=== PATIENT | male | born 1950 | race Caucasian/White ===

== ENCOUNTER 2020-06-18 22:27 | Emergency (ER) | payer MEDICARE, SELFPAY ==
--- NOTE | 2020-06-18 | XR_ITS ---
EXAMINATION: RADIOGRAPHS LEFT HAND CLINICAL INFORMATION: Pain after fall COMPARISON: None TECHNIQUE: 4 views of the left hand were obtained. FINDINGS: Visualized portions of the distal radius and ulna demonstrate no fracture. Carpal rows are well-maintained. No carpal bone fracture. No metacarpal or phalangeal fracture. There are mild diffuse degenerative changes of the MCP and IP joints. XR/XR hand wrist LT IMPRESSION: No fracture.
[2020-06-18 22:30] VITALS: BP 199/95; PULSE 91; RESP 18; TEMP 36.1; O2SAT 98; BMI 25.7
--- NOTE | 2020-06-18 22:57 | ED_ITS ---
HPI - Extremity Problem General Chief complaint: Extremity Injury, Upper Stated complaint: hand swelling due to fall Time Seen by Provider: 06/18/20 22:33 Source: patient Mode of arrival: ambulatory Limitations: no limitations History of Present Illness HPI Narrative: This is a 70-year-old male who states that he fell with onto his outstretched left hand to the back and developed pain with swelling across the back of the hand afterwards that was accompanied with decreased movement pain over the ulnar styloid and across the back of the hand. Otherwise he denies any LOC. Related Data Allergies Allergy/AdvReac Type Severity Reaction Status Date / Time No Known Allergies Allergy Verified 06/18/20 22:45 [No Known Allergies*] Review of Systems Review of Systems: Pertinent positives and negatives as stated in HPI 10 point review of systems otherwise negative. [facility] Past Medical History Source: nursing notes reviewed Social History Social History Advance Directives: No Advance Directives Information Provided: No Physical Exam Vital Signs: Vital Signs: Last Vital Signs Temp 97 F 06/18/20 22:30 Pulse 91 06/18/20 22:30 Resp 18 06/18/20 22:30 BP 199/95 H 06/18/20 22:30 Pulse Ox 98 06/18/20 22:30 Body Mass Index 25.7 VITAL SIGNS: Reviewed. GENERAL: Well developed, well nourished, in no acute distress. HEAD: Normocephalic/atraumatic, EYES: PERRLA, EOMI intact without pain, no nystagmus/pallor/icterus noted EARS: Ext canals without abnormality, TMs non-bulging and non-erythematous NOSE: Nares patent bilateral OROPHARYNX: no oral lesions noted, posterior pharynx clear and non-erythematous without noted tonsillar enlargement/erythema/exudates NECK: Supple, no adenopathy LUNGS: Normal breath sounds. No adventitious sounds or accessory muscle use. SpO2<98> CARDIOVASCULAR: Regular rate and rhythm without noted murmurs, no JVD or lower extremity edema. ABDOMEN: Soft, non-tender, non-distended with bowel sounds. No rigidity. No guarding. No palpable masses or hernias noted MUSCULOSKELETAL: No tenderness, deformities, or effusions noted on gross inspection. EXTREMITIES: No cyanosis, clubbing or edema; LEFT HAND: No deformity noted, swelling to across the dorsum of the hand but able to fully range of motion all digits at the MCPs, no snuffbox tenderness, patient resisting passive range of motion at the wrist but does state that there is pain on palpation over the ulnar styloid. Capillary refills less than 3 seconds SKIN: Inspection of the skin reveals no rashes, ulcerations, jaundice, pallor, or petechiae. NEUROLOGIC: Alert and oriented x 4. Strength and sensation to light touch were grossly intact x 4. Course Course Course Narrative: This 70-year-old male with history and clinical presentation consistent with contusion and soft tissue injury which was further supported by negative wrist and hand x-ray. All results and findings were discussed with the patient at bedside and he will be placed in a splint for a limited amount of time strictly for comfort measures and instructed to follow-up with his primary care provider for further evaluation. Discharge Plan Discharge Clinical Impression: Sprain and strain of wrist Contusion of hand, left Qualifiers: Encounter type: initial encounter Qualified Code(s): S60.222A - Contusion of left hand, initial encounter Patient Disposition: Home, Self-Care Instructions: Wrist Sprain (ED) Additional Instructions: 1. Tylenol 1000 mg, por v?a oral, cada 6 horas seg?n sea necesario para controlar el dolor. No exceda los 4000 mg en 24 horas. 2. Aplique hielo michelle 10-15 minutos, 3 a 4 veces al d?a, no aplique hielo directamente sobre la piel expuesta. 3. Eleve esta mano tanto mega sea posible hasta que monge proveedor de atenci?n primaria lo reeval?e. 4. Aunque le hayan proporcionado yaakov f?naz, debe quit?rsela al menos 3 o 4 veces al d?a e intentar realizar con suavidad ejercicios de rango de movimiento que involucren jesús dedos y mu?eca. 5. Comun?quese con el consultorio de monge proveedor de atenci?n primaria llamando por la ma?hanna. El paciente y / o la holly reconocen que comprenden los resultados (seg?n corresponda), el diagn?stico, el plan de tratamiento, la necesidad de seguimiento y los s?ntomas que deber?an impulsar el regreso a la rae de emergencias. Referrals: Hanna Marcelino MD [Primary Care Provider] - 2 days (Re-evaluation of left hand/wrist injury.) Print Language: Cook Islander
[2020-06-18] MEDS: Acetaminophen 325 MG TABLET 975 MG PO (23:24)
== END 2020-06-18 23:35 | disposition home or self-care (01) ==
PROVIDERS: Emergency Provider Student in an Organized Health Care Education/Training Program; PCP Internal Medicine
DX: S63.92XA Sprain of unspecified part of left wrist and hand, initial encounter (principal); S60.222A Contusion of left hand, initial encounter; W01.0XXA Fall on same level from slipping, tripping and stumbling without subsequent striking against object, initial encounter; Y93.9 Activity, unspecified; Y92.9 Unspecified place or not applicable; Y99.9 Unspecified external cause status
CPT/HCPCS: 73110; 73130; 99284

== ENCOUNTER 2021-09-01 16:24 | Emergency (ER) | payer MEDICARE, SELFPAY ==
--- NOTE | ~2021-09-01 | CT_ITS ---
EXAMINATION: CT ABDOMEN AND PELVIS WITHOUT CONTRAST CLINICAL INFORMATION: Hematuria and right upper abdominal pain COMPARISON: 04/25/2017 TECHNIQUE: Multidetector volumetric imaging was performed from the superior aspect of the liver through the pubic symphysis. Sagittal and coronal reformatted images were obtained on the technologist's workstation. This CT examination was performed using dose optimization techniques as appropriate, variously including the following: *Automated exposure control *Adjustment of mA and/or kV according to patient size (this includes techniques or standardized protocols for targeted exams where dose is matched to indication/reason for exam; i.e. extremities or head) *Use of iterative reconstruction technique DLP: 574 mGy-cm FINDINGS: The lack of intravenous contrast limits evaluation of the solid visceral organs including the liver, spleen, pancreas, and kidneys. LUNG BASES: Motion artifact. Normal heart size. LIVER, GALLBLADDER, AND BILIARY TREE: Limited non-contrast evaluation is normal. No gross focal hepatic lesion. Normal liver size and contour. No gross biliary ductal dilation. The gallbladder is unremarkable with no evidence of radiopaque gallstones, gallbladder wall thickening, or obvious pericholecystic inflammatory changes. PANCREAS: Limited non-contrast evaluation is normal. No jossie-pancreatic fluid. SPLEEN: Limited non-contrast evaluation is normal. ADRENAL GLANDS: Normal; no adrenal mass. KIDNEYS AND URETERS: There calcifications in the renal hoda bilaterally consistent with vascular calcifications. Water density 2 cm cyst of the anterior cortex of the right mid kidney; no imaging follow-up recommended. No hydronephrosis or hydroureter. GASTROINTESTINAL TRACT: Stomach and small bowel nondilated. Normal appendix. Diverticulosis without evidence of colitis or diverticulitis. ABDOMINAL WALL: There is fat within both inguinal canals. LYMPH NODES: No pathologically enlarged lymph nodes in the abdomen or pelvis. VASCULAR: Circumferential calcified atherosclerotic changes of the aorta. IVC filter in place. BLADDER: Unremarkable. PELVIC VISCERA: Prostatomegaly, 5.7 cm diameter. OSSEOUS STRUCTURES: Several healed right anterior rib fractures. Multilevel degenerative changes. No acute osseous abnormality. CT/CT abdomen pelvis wo con IMPRESSION: There are calcifications in the renal hoda bilaterally. Although these could represent renal calculi, most have a configuration more suggestive of renal vascular calcifications. No hydronephrosis or hydroureter seen.
[2021-09-01 16:32] VITALS: BP 160/87; BP 161/85; PULSE 88; PULSE 90; RESP 18; TEMP 36.4; O2SAT 97; O2SAT 99; BMI 29.5
--- NOTE | 2021-09-01 16:46 | ED_ITS ---
HPI - Abdominal Pain General Chief Complaint: Abdominal Pain Stated Complaint: Abdominal pain Time Seen by Provider: 09/01/21 16:46 Source: patient Mode of arrival: ambulatory Limitations: no limitations History of Present Illness HPI narrative: right upper quadrant pain for one month. States he takes chocolate for the pain MD elicited complaint: abdominal pain Onset (ago): month(s) Pain Consistency: intermittent Location: RUQ Severity: mild Quality: burning Relieving factors: other (chocolate and milk) Related Data Allergies Allergy/AdvReac Type Severity Reaction Status Date / Time No Known Allergies Allergy Verified 06/18/20 22:45 [No Known Allergies*] Review of Systems Constitutional: Reports no additional constitutional complaints Eyes: Reports no additional eye complaints Denies dizziness Cardiovascular: Reports no additional cardiovascular complaints Respiratory: Reports as per HPI Gastrointestinal: Reports no additional gastrointestinal complaints Musculoskeletal: Reports no additional musculoskeletal complaints Skin/Breast: Denies rash Reports system reviewed and no additional complaints, except as documented, Denies dizziness and Denies Sensory deficit (Neuro) Psychiatric: Denies anxiety [facility] Social History Social History Advance Directives: No Advance Directives Information Provided: No Physical Exam ED Vital Signs: Vital Signs - 24 hr 09/01/21 16:32 09/01/21 19:08 Temperature 97.6 F Pulse Rate 90 81 Respiratory Rate 18 16 Blood Pressure 160/87 H 168/84 H Pulse Oximetry 97 98 BMI result Body Mass Index 29.5 Const General: healthy appearing Nutritional Appearance: average body habitus Orientation/consciousness: oriented to person and patient oriented x3 Limitations: no limitations HENMT Head: Yes normal to inspection Ears: external ears normal General nose exam: Normal external nose present Mouth: Normal oral and palatal mucosa present and oropharynx normal Throat: Yes posterior oropharynx normal Eyes General: appearance normal, both eyes and all related structures Neck Neck: Yes normal visual inspection Chest Chest palpation & inspection: normal inspection of the chest Resp Auscultation: clear to auscultation bilaterally Cardio Jugular venous distension: no JVD Rate: regular rate Rhythm: regular rhythm Heart sounds: S1 normal heart sound present and S2 normal heart sound present GI Inspection: Yes normal to inspection Palpation (GI): Soft to palpation, nontender and No hepatosplenomegaly present Auscultation: normal bowel sounds General: Yes no CVA tenderness Back/Spine/Pelvis Back: no CVA tenderness Skin General skin exam: no rashes or lesions noted Neuro General: oriented to person and patient oriented x3 Cranial nerves: Yes CN's II-XII intact bilaterally Motor exam (neuro): 5/5 motor strength present throughout Sensory Exam: No Sensory deficit (Neuro) Extrem General: Yes normal to inspection Psych Appearance: grossly normal Course Reevaluation(s) Reevaluation #1: Ct shows calcification in right kidney but no hydro. Old filter in IVC, no explanation for hematuria and casts. Will have patient follow up with PMD Time: 21:28 [facility] [place] - Abdominal Pain Lab Data Result diagrams: 09/01/21 16:58 09/01/21 16:58 Labs: Lab Results 09/01/21 09/01/21 09/01/21 Range/Units 16:58 16:58 16:58 WBC 13.4 H (4.8-10.8) X10*3/uL RBC 5.01 (4.60-5.80) X10*6/uL Hgb 15.6 (14.0-18.0) g/dl Hct 46.1 (42.0-52.0) % MCV 92.0 (80.0-98.0) fL MCH 31.1 (27.0-33.0) pg MCHC 33.8 (31.0-36.0) g/dl RDW 11.7 (11.0-16.0) % Plt Count 215 (160-400) X10*3/uL MPV 10.8 (9.4-12.4) fL Immature Gran % (Auto) 0.6 H (0.0-0.4) % Neut % (Auto) 84.8 H (45-73) % Lymph % (Auto) 9.7 L (20-40) % [place] % (Auto) 4.3 (2-11) % Eos % (Auto) 0.2 (0-4) % Baso % (Auto) 0.4 (0-2) % Lymph # (Auto) 1.3 (1.2-4.9) X10*3/uL [place] # (Auto) 0.6 (0.1-1.2) X10*3/uL Eos # (Auto) 0.0 (0.0-0.4) X10*3/uL Baso # (Auto) 0.1 (0.0-0.2) X10*3/uL Abs Immat Gran (auto) 0.08 H (0.00-0.03) X10*3/uL Absolute Neuts (auto) 11.4 H (2.0-8.3) x10*3/uL Absolute Nucleated RBC 0.000 (0.0-0.012) X10*3/uL Nucleated RBC % (auto) 0.0 (0.0-0.2) /100WBC Sodium 132 L (135-145) mmol/L Potassium 4.0 (3.3-5.1) mmol/L Chloride 100 (96-108) mmol/L Carbon Dioxide 20 L (22-29) mmol/L Anion Gap 16 (12-20) BUN 12 (9-16) mg/dL Creatinine 1.01 (0.5-1.4) mg/dL Estim Creat Clear Calc 65.5 Estimated GFR > 60 Random Glucose 146 H (60-115) mg/dL Calcium 9.3 (8.4-10.2) mg/dL Total Bilirubin 0.6 (0.0-1.0) mg/dL AST 30 (5-37) U/L ALT 27 (0-40) U/L Alkaline Phosphatase 88 (39-117) U/L Total Protein 7.2 (6.5-8.0) g/dL Albumin 4.4 (3.5-5.0) g/dL Lipase 21 (8-78) U/L Urine Color YELLOW Urine Appearance CLEAR Urine pH 5.5 (5.0-8.0) Ur Specific [place] 1.020 (1.005-1.025) Urine Protein 2+ H (NEG-TRACE) MG/DL Urine Glucose (UA) NEG (NEG) MG/DL Urine Ketones NEG (NEG) MG/DL Urine Blood 1+ H (NEG) Urine Nitrite NEG (NEG) Ur Leukocyte Esterase NEG (NEG) Urine RBC 5-9 H (0) /HPF Urine WBC 0-2 (0-4) /HPF Ur Squamous Epith Cells 1+ /LPF Ur Renal Epithelial Cell 2+ /LPF Urine Bacteria NONE /LPF Epithelial Casts 0-2 /LPF Hyaline Casts 5-9 /LPF Granular Casts 1-4 /LPF Urine Mucus 4+ /LPF Ur Oval Fat Bodies NOTED (NONE) Imaging Data CT scan - abdomen: Radiologist's impression: CT/CT abdomen pelvis wo con IMPRESSION: There are calcifications in the renal hoda bilaterally. Although these could represent renal calculi, most have a configuration more suggestive of renal vascular calcifications. No hydronephrosis or hydroureter seen. ? Discharge Plan Discharge Clinical Impression: Abdominal pain, Hematuria Patient Disposition: Home, Self-Care Instructions: Hematuria (ED), Abdominal Pain (ED) Additional Instructions: must see your doctor and Dr. Boogie for blood in your urine Referrals: PhysicianGabriel [Primary Care Provider] - 3 days Sabino Boogie MD [Physician] - 5 days
[2021-09-01 17:02] LABS: MANUAL DIFF FLAG NO
[2021-09-01] MEDS: Magnesium Hydrox/Alum Hydrox 30 ML ORAL.SUSP PO (17:02)
[2021-09-01] MEDS: Lidocaine HCl Viscous 2 % 15 ML SOLUTION MUCOUS MEM (17:02)
[2021-09-01] MEDS: PHENobarb/Hyoscy/Atropine/Scop 10 ML ELIXIR PO (17:02)
[2021-09-01 17:03] LABS: Basophils Absolute Auto 0.1 X10*3/uL (0.0-0.2); Basophils Percent Auto 0.4 % (0-2); Eosinophils Percent Auto 0.2 % (0-4); Hematocrit 46.1 % (42.0-52.0); Hemoglobin 15.6 g/dl (14.0-18.0); Imm Gran Abs Auto 0.08 X10*3/uL (0.00-0.03); Imm Gran Pct Auto 0.6 % (0.0-0.4); Lymphocytes Absolute Auto 1.3 X10*3/uL (1.2-4.9); Lymphocytes Percent Auto 9.7 % (20-40); Mean Corpuscular HGB Conc 33.8 g/dl (31.0-36.0); Mean Corpuscular Hemoglobin 31.1 pg (27.0-33.0); Mean Platelet Volume 10.8 fL (9.4-12.4); Monocytes Absolute Auto 0.6 X10*3/uL (0.1-1.2); Monocytes Percent Auto 4.3 % (2-11); Neutrophils Absolute Auto 11.4 x10*3/uL (2.0-8.3); Neutrophils Percent Auto 84.8 % (45-73); Platelet Count 215 X10*3/uL (160-400); Red Blood Count 5.01 X10*6/uL (4.60-5.80); Red Cell Distribution Width 11.7 % (11.0-16.0); White Blood Count 13.4 X10*3/uL (4.8-10.8)
[2021-09-01 17:48] LABS: Alanine Aminotransferase 27 U/L (0-40); Albumin Level 4.4 g/dL (3.5-5.0); Alkaline Phosphatase 88 U/L (39-117); Anion Gap 16 (12-20); Aspartate Amino Transferase 30 U/L (5-37); Bilirubin Total 0.6 mg/dL (0.0-1.0); Blood Urea Nitrogen 12 mg/dL (9-16); Calcium 9.3 mg/dL (8.4-10.2); Carbon Dioxide 20 mmol/L (22-29); Chloride 100 mmol/L (96-108); Creatinine Clr Calc Pharmacy 65.5; Estimated Glomerular Filt Rate > 60; Glucose Random 146 mg/dL (60-115); Lipase 21 U/L (8-78); Sodium 132 mmol/L (135-145); Total Protein 7.2 g/dL (6.5-8.0)
[2021-09-01 17:59] LABS: Appearance Urine CLEAR; Color Urine YELLOW; Glucose Urine UA NEG (NEG); Leukocyte Esterase Urine NEG (NEG); Nitrite Urine NEG (NEG); PH 5.5 (5.0-8.0); UACC Culture Trigger NO; Urine Blood 1+ (NEG); Urine Ketones NEG (NEG); Urine Protein 2+ MG/DL (NEG-TRACE)
[2021-09-01 18:24] LABS: Epith (RTE) Cast 0-2 /LPF; Mucus Urine 4+ /LPF; Oval Fat Bodies Urine NOTED; Renal Epithelial Cells Urine 2+ /LPF; Squamous Epithelial Cell Urine 1+ /LPF; WBC Urine 0-2 /HPF (0-4)
[2021-09-01 19:08] VITALS: BP 168/84; PULSE 81; RESP 16; O2SAT 98
[2021-09-01 21:53] VITALS: BP 175/62; PULSE 77; RESP 16; O2SAT 95
== END 2021-09-01 22:50 | disposition home or self-care (01) ==
PROVIDERS: Emergency Provider Emergency Medicine
DX: R10.9 Unspecified abdominal pain (principal); R31.9 Hematuria, unspecified; N28.89 Other specified disorders of kidney and ureter
CPT/HCPCS: 36415; 74176; 80053; 81001; 83690; 85025; 99284

== ENCOUNTER 2021-09-01 23:17 | Emergency (ER) | payer MEDICARE, SELFPAY ==
--- NOTE | 2021-09-01 | ECG_ITS ---
Test Reason : SEIZURE Blood Pressure : / mmHG Vent. Rate : 092 BPM Atrial Rate : 092 BPM P-R Int : 150 ms QRS Dur : 084 ms QT Int : 388 ms P-R-T Axes : -06 000 -13 degrees QTc Int : 479 ms Normal sinus rhythm Minimal voltage criteria for LVH, may be normal variant ( R in aVL ) Borderline ECG When compared with ECG of 10-OCT-2019 17:06, Previous ECG has undetermined rhythm, needs review Nonspecific T wave abnormality now evident in Inferior leads Referred By: Generic ED Physician Electronically Signed By:Santos Reece
--- NOTE | ~2021-09-01 | CT_ITS ---
EXAMINATION: CT HEAD WITHOUT CONTRAST CLINICAL INFORMATION: Status post fall COMPARISON: 10/10/2019 TECHNIQUE: Contiguous axial imaging was performed from the skull base to vertex without intravenous administration of contrast. This CT examination was performed using dose optimization techniques as appropriate, variously including the following: *Automated exposure control *Adjustment of mA and/or kV according to patient size (this includes techniques or standardized protocols for targeted exams where dose is matched to indication/reason for exam; i.e. extremities or head) *Use of iterative reconstruction technique DLP: 715 mGy-cm FINDINGS: There is no evidence of acute intracranial hemorrhage or territorial infarction. No abnormal mass effect or midline shift is seen. Maloney to white matter differentiation is well preserved. No extra-axial fluid collections are identified. The ventricles are normal in size. There are regions of encephalomalacia in the anterior bilateral frontal lobes, in keeping with chronic sequelae of prior intracranial hemorrhage. There is mild periventricular white matter hypoattenuation consistent with chronic small vessel ischemic disease. Mild volume loss is noted. The osseous structures and soft tissues are normal. Partial opacification of the right ethmoid air cells. The mastoid air cells are well-aerated. CT/CT head/brain wo con IMPRESSION: No acute intracranial pathology. Regions of encephalomalacia in the anterior bilateral frontal lobes.
[2021-09-01 23:32] VITALS: BP 160/78; BP 168/90; PULSE 100; PULSE 94; RESP 16; TEMP 36.6; O2SAT 100; O2SAT 98; BMI 29.2
--- NOTE | 2021-09-01 23:50 | ED_ITS ---
HPI - Seizure General Chief Complaint: Seizure Stated Complaint: SEIZURE W/FALL, CCOLLAR+ Time Seen by Provider: 09/01/21 23:45 Source: patient Mode of arrival: EMS History of Present Illness HPI Narrative: Patient with history of past alcohol abuse history of mechanical fall on 10/22 when he was intoxicated had multiple intracranial bleed bifrontal SAH IPH intraventricular hemorrhage SDH and occipital fracture , DVT status post IVC [place] patient claims that he has been drinking since then off and on, lasting was a week ago was seen here earlier for right abdominal pain workup was negative for any acute intra-abdominal pathology. Patient went home was doing okay then all of a sudden started shaking patient's son was next to him lowered it down tonic and clonic seizure lasted for about 3-4 minutes with postictal and tongue bite Related Data Previous Rx's Medication Instructions Recorded levetiracetam 500 mg tablet 500 mg PO BID #60 tab 09/02/21 (Keppra) Allergies Allergy/AdvReac Type Severity Reaction Status Date / Time No Known Allergies Allergy Verified 06/18/20 22:45 [No Known Allergies*] Review of Systems Review of Systems: Yes all other systems are reviewed and are negative [facility] Social History Social History Advance Directives: No Physical Exam Vital Signs: Vital Signs: Last Vital Signs Temp 98.1 F 09/01/21 23:56 Pulse 89 09/01/21 23:56 Resp 16 09/01/21 23:56 BP 153/83 H 09/01/21 23:56 Pulse Ox 94 09/01/21 23:56 BMI result Body Mass Index 29.2 Appearance: Alert. Oriented X3. No acute distress. Eyes: PERRLA, No Nystagmus ENT: Pharynx normal. Oral Mucosa moist superficial tongue bite+ Neck: Normal inspection. Neck supple. CVS: Normal heart rate and rhythm. Pulses normal. Respiratory: No respiratory distress. Equal air entry bilateral, no wheezing/rales/rhonchi Abdomen: Soft and nontender. Bowel sounds are present, no mass palpable, no CVA tenderness Skin: Skin warm and dry. Normal skin color. Normal skin turgor. Extremities: No lower extremity edema. No calf tenderness Neuro: Oriented X 3. No motor deficit. No sensory deficit.No cerebellar signs , cranial nerves II-XII intact Appearance: Alert. Oriented X3. No acute distress. MDM - Seizure MDM Narrative Medical decision making narrative: Patient history of significant head injury 2 years ago including subdural hematoma subarachnoid bleed and ICH came here as he had a seizure which was new onset also patient has a history of alcohol abuse patient's seizures likely posttraumatic CT scan at this time is negative will discharge patient home on Keppra patient was given 1 g of IV Keppra in the ER Discharge Plan Discharge Clinical Impression: Generalized seizure Patient Disposition: Home, Self-Care Instructions: New-Onset Seizure in Adults (ED) Additional Instructions: Stop Alcohol use Start taking medication as prescribed for seizure Follow up with neurologist Prescriptions: New levetiracetam [Keppra] 500 mg tablet 500 mg PO BID Qty: 60 0RF Referrals: Debbi Javier MD [Physician] - 1 week
[2021-09-01 23:56] VITALS: BP 153/83; PULSE 89; RESP 16; TEMP 36.7; O2SAT 94
[2021-09-02] MEDS: levETIRAcetam 750 MG in 0.9 % Sodium Chloride 100 ML 430 MG IV (01:01)
--- NOTE | 2021-09-02 01:38 | PC.NURSE ---
I assumed care of this pt upon his arrival from EMS. Since that time he has been alert, oriented to person and place but not to time initially, but as time passed he became oriented x [address] at time of DC. He arrived without complaints - no pain, no SOB, no nausea or vomiting, no VIEIRA. He was D/C'd at this time and verbalized an understanding of all DC orders. he ambulated out of he ED safely and steadily. I offered multiple times to call family members so that he could obtain a ride home, yet he refused. I ambulated with the pt to the waiting room where he states he will obtaine a ride - he plans to attempt to obtain a taxi ride home.
== END 2021-09-02 01:40 | disposition home or self-care (01) ==
PROVIDERS: Emergency Provider Internal Medicine
DX: R56.9 Unspecified convulsions (principal)
CPT/HCPCS: 70450; 93005; 96374; 99284; J1953

== ENCOUNTER 2023-03-12 10:56 | Outpatient (REF) | payer OTHER, SELFPAY ==
--- NOTE | ~2023-03-12 | XR_ITS ---
Indication: Pain EXAMINATION: Left knee and left hip. Comparison is made to nuts and bolts assembler film from CT of 09/01/2021 2 views of left hip demonstrate unusual appearance to the junction of the femoral head with the femoral neck. If there is been history of trauma I cannot completely exclude fracture though no abnormality is seen in the region on the frog-leg image. Appearance is also found to be similar from Load Checker image from CT. The femoral head contour is fairly smooth. There is some loss of joint space medially and inferiorly. Some mild irregularity at the labral attachment. Mild degeneration at the level of the greater trochanter. 4 views of left knee demonstrates mild patellofemoral spurring. No significant effusion. Mild tibial spine spurring. The medial lateral joint spaces are fairly well-preserved. XR/XR hip LT min 2V IMPRESSION: No convincing evidence for an acute finding left hip. Correlation recommended clinically. There is some degeneration here with loss of joint space. No acute finding in the left knee. Mild degenerative changes are noted.
--- NOTE | ~2023-03-12 | XR_ITS ---
Indication: Pain EXAMINATION: Left knee and left hip. Comparison is made to children counselor film from CT of 09/01/2021 2 views of left hip demonstrate unusual appearance to the junction of the femoral head with the femoral neck. If there is been history of trauma I cannot completely exclude fracture though no abnormality is seen in the region on the frog-leg image. Appearance is also found to be similar from [employer] Laborer image from CT. The femoral head contour is fairly smooth. There is some loss of joint space medially and inferiorly. Some mild irregularity at the labral attachment. Mild degeneration at the level of the greater trochanter. 4 views of left knee demonstrates mild patellofemoral spurring. No significant effusion. Mild tibial spine spurring. The medial lateral joint spaces are fairly well-preserved. XR/XR knee LT 4V IMPRESSION: No convincing evidence for an acute finding left hip. Correlation recommended clinically. There is some degeneration here with loss of joint space. No acute finding in the left knee. Mild degenerative changes are noted.
== END 2023-03-12 10:57 | disposition home or self-care (01) ==
LOC: HO.HHCX 10:56
PROVIDERS: Visit Provider Internal Medicine
DX: M25.552 Pain in left hip (principal); M25.562 Pain in left knee
CPT/HCPCS: 73502; 73564

== ENCOUNTER 2023-03-12 11:24 | Outpatient (REF) | payer OTHER, SELFPAY ==
[2023-03-12 13:05] LABS: MANUAL DIFF FLAG NO
[2023-03-12 13:36] LABS: Basophils Absolute Auto 0.1 X10*3/uL (0.0-0.2); Basophils Percent Auto 0.8 % (0-2); Eosinophils Absolute Auto 0.2 X10*3/uL (0.0-0.4); Eosinophils Percent Auto 1.9 % (0-4); Hematocrit 44.9 % (42.0-52.0); Hemoglobin 14.8 g/dl (14.0-18.0); Imm Gran Abs Auto 0.13 X10*3/uL (0.00-0.03); Imm Gran Pct Auto 1.2 % (0.0-0.4); Lymphocytes Absolute Auto 2.4 X10*3/uL (1.2-4.9); Lymphocytes Percent Auto 22.7 % (20-40); Mean Corpuscular Hemoglobin 32.5 pg (27.0-33.0); Mean Corpuscular Volume 98.5 fL (80.0-98.0); Mean Platelet Volume 11.6 fL (9.4-12.4); Monocytes Absolute Auto 0.6 X10*3/uL (0.1-1.2); Monocytes Percent Auto 5.5 % (2-11); Neutrophils Absolute Auto 7.2 x10*3/uL (2.0-8.3); Neutrophils Percent Auto 67.9 % (45-73); Platelet Count 213 X10*3/uL (160-400); Red Blood Count 4.56 X10*6/uL (4.60-5.80); Red Cell Distribution Width 12.2 % (11.0-16.0); White Blood Count 10.6 X10*3/uL (4.8-10.8)
[2023-03-12 13:55] LABS: Alanine Aminotransferase 16 U/L (0-40); Albumin Level 4.4 g/dL (3.5-5.0); Alkaline Phosphatase 86 U/L (39-117); Anion Gap 13 (12-20); Aspartate Amino Transferase 22 U/L (5-37); Bilirubin Direct 0.1 mg/dL (0.0-0.5); Bilirubin Total 0.3 mg/dL (0.0-1.0); Blood Urea Nitrogen 18 mg/dL (9-16); Carbon Dioxide 25 mmol/L (22-29); Chloride 105 mmol/L (96-108); Estimated Glomerular Filt Rate > 60; Glucose Random 89 mg/dL (60-115); Potassium 4.6 mmol/L (3.3-5.1); Sodium 138 mmol/L (135-145); Total Protein 7.5 g/dL (6.5-8.0)
[2023-03-12 14:09] LABS: Cholesterol 197 mg/dL (<200); HDL Cholesterol 37 mg/dL (>40); Triglycerides 588 mg/dL (<150)
[2023-03-12 14:16] LABS: TSH reflex Free T4 1.58 uIU/mL (0.32-4.0); Vitamin D 25-OH Total 27.7 ng/mL (>30)
[2023-03-12 14:18] LABS: Reflex LDLD? Yes
[2023-03-13 09:30] LABS: Syphilis Screen Nonreactive (Nonreactive)
[2023-03-13 21:28] LABS: LDL Cholesterol Direct 85 mg/dL (<100)
[2023-03-15 13:09] LABS: Rubeola IgG (Measles) >300.00 AU/mL
[2023-03-16 11:03] LABS: TS Negative Control Passed; TS Panel A 15; TS Panel B 13; TS Positive Control Passed; TSpotTB Positive (Negative)
== END 2023-03-12 11:25 | disposition home or self-care (01) ==
LOC: HO.HHCL 11:24
PROVIDERS: Visit Provider Internal Medicine
DX: Z01.84 Encounter for antibody response examination (principal); Z11.1 Encounter for screening for respiratory tuberculosis; M25.552 Pain in left hip; G89.29 Other chronic pain; I10 Essential (primary) hypertension; E87.1 Hypo-osmolality and hyponatremia; R26.9 Unspecified abnormalities of gait and mobility; H54.7 Unspecified visual loss
CPT/HCPCS: 36415; 80053; 80061; 82248; 82306; 83721; 84443; 85025; 86481; 86735; 86762; 86765; 86780

== ENCOUNTER 2023-06-10 15:40 | Outpatient (AMB) | payer MEDICARE, SELFPAY ==
--- NOTE | 2023-06-10 15:44 | A.OFFVIS_ITS ---
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 Started a few years ago. 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 He reports that he actually had some left-sided hip pain that radiated down. Upon discussion with him he reports that he can only walk about a block before he starts to experience calf pain. He reports today it is right more so than left. He he smokes what he says is about 6-7 cigarettes a day but I suspect it is more than that. In addition he reports about a 6 pack of beer daily and according to family it is significantly more than that. He is now for evaluation regarding peripheral vascular disease. In addition S the patient actually had an IVC filter placed back in 2019 after an apparent for all after being intoxicated developed a subarachnoid hemorrhage along with a DVT in the left calf. He subsequently had a filter placed due to inability to anticoagulate. He was seen by [facility] back in 2019 but was lost to follow-up. He is also concerned about this filter placement as well. He now presents for follow-up. [facility] Surgical History (Updated 06/10/23 @ 15:55 by TEDDY El) History of tonsillectomy Social History (Updated 06/10/23 @ 15:56 by TEDDY El) Patient Tobacco Use Status: Current everyday Tobacco user Cigarettes Per Day: 5 Review of Systems Const All systems reviewed & are unremarkable except as noted in HPI and below Reports no additional complaints ENT Reports Normal hearing present Card Denies chest pain, Denies chest pain at rest, Denies chest pain with activity and Denies pedal edema Resp Denies cough GI Denies abdominal pain Musc Denies abnormal gait, Denies muscle cramps and Denies radiating pain into limb Skin/Breast Denies skin ulcer and Denies wounds Neuro Reports Normal hearing present and Denies abnormal gait Psych Reports no additional complaints Physical Exam Const General: cooperative, healthy appearing and comfortable Orientation/consciousness: oriented to person, oriented to place and oriented to time HEENT Head: Yes normal to inspection Neck Neck: Yes normal visual inspection Carotids: no bruits Chest Chest palpation & inspection: normal inspection of the chest Resp Effort & Inspection: normal respiratory effort and able to speak in complete sentences Auscultation: clear to auscultation bilaterally, no crackles, no rales, no rhonchi and no wheezes Cardio Other: Bilateral DP signal Rate: regular rate Rhythm: regular rhythm Heart sounds: S1 normal heart sound present and S2 normal heart sound present Bruits: no carotid bruits Peripheral pulses: Peripheral pulses 2+ throughout GI Inspection: Yes normal to inspection Skin Wounds: no wounds Hair: normal Neuro General: oriented to person, oriented to place and oriented to time Cranial nerves: Yes CN's II-XII intact bilaterally and Yes Normal hearing present Cognition (Neuro): normal cognition Motor exam (neuro): 5/5 motor strength present throughout Extrem Other: venous exam: No significant superficial varicosities or spider telangiectasias, minimal edema General: No clubbing, No cyanosis and No edema Psych Appearance: grossly normal Mental Status: mental status grossly normal Speech and movement: Normal speech and movement present Assessment & Plan Assessment & Plan (1) PAD (peripheral artery disease): Code(s): I73.9 - Peripheral vascular disease, unspecified Plan: In short patient has claudication. I did review the pathophysiology of peripheral vascular disease with the patient. In addition we did discuss routine conservative measures including a healthy diet and the importance of exercise and ambulation. We did discuss risk factor modification in particular smoking cessation. I also did recommend a daily baby aspirin as well. I have taken the liberty of ordering noninvasive arterial testing and will schedule follow-up as soon as testing is done.. Thank you for allowing us to participate in this patient's care. If there are any questions or concerns please do not hesitate to contact us. 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 The question is the status of this IVC filter which may indeed require retrieval. I have taken the liberty of ordering a left lower extremity venous ultrasound to see the status of this DVT. He will follow up with us after testing. Thank you for allowing us to assist in his care. If there are any questions or concerns please do not hesitate to contact us. 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
== END 2023-06-10 16:10 | disposition home or self-care (01) ==
PROVIDERS: Visit Provider Surgery Vascular Surgery
DX: I73.9 Peripheral vascular disease, unspecified (principal); I82.542 Chronic embolism and thrombosis of left tibial vein
CPT/HCPCS: 99214

== ENCOUNTER → 2023-06-10 15:40 | Outpatient (BNVA) | payer MEDICARE, SELFPAY | PROVIDERS: Visit Provider Surgery Vascular Surgery | DX: I73.9 Peripheral vascular disease, unspecified (principal); I82.542 Chronic embolism and thrombosis of left tibial vein | CPT/HCPCS: 99212 ==

== ENCOUNTER 2023-12-16 15:07 | Outpatient (REF) | payer MEDICARE, SELFPAY ==
--- NOTE | ~2023-12-16 | XR_ITS ---
EXAMINATION: XR WRIST, LEFT CLINICAL INFORMATION: Left wrist pain and swelling. COMPARISON: Left hand and wrist radiograph dated 06/18/2020. TECHNIQUE: PA, lateral, and oblique views of the left wrist. FINDINGS: No acute fracture or dislocation. Normal carpal alignment. Mild joint space narrowing with tiny marginal osteophytes at the triscaphe and first carpometacarpal joint, slightly progressed. No new osseous erosion. No abnormal soft tissue calcification. Circumferential soft tissue swelling. XR/XR wrist LT min 3V IMPRESSION: 1. Circumferential soft tissue swelling without acute osseous abnormality. 2. Mild degenerative arthritis at the triscaphe and first carpometacarpal joints, slightly progressed.
== END 2023-12-16 15:08 | disposition home or self-care (01) ==
LOC: HO.HHCX 15:07
PROVIDERS: Visit Provider Emergency Medicine
DX: Z13.89 Encounter for screening for other disorder (principal)
CPT/HCPCS: 73110

== ENCOUNTER 2023-12-16 15:26 | Outpatient (REF) | payer MEDICARE, SELFPAY ==
[2023-12-16 15:52] LABS: MANUAL DIFF FLAG NO
[2023-12-16 15:59] LABS: Basophils Absolute Auto 0.1 X10*3/uL (0.0-0.2); Basophils Percent Auto 0.7 % (0-2); Eosinophils Absolute Auto 0.4 X10*3/uL (0.0-0.4); Hematocrit 42.1 % (42.0-52.0); Hemoglobin 14.2 g/dl (14.0-18.0); Imm Gran Abs Auto 0.09 X10*3/uL (0.00-0.03); Imm Gran Pct Auto 0.7 % (0.0-0.4); Lymphocytes Absolute Auto 1.6 X10*3/uL (1.2-4.9); Lymphocytes Percent Auto 12.2 % (20-40); Mean Corpuscular HGB Conc 33.7 g/dl (31.0-36.0); Mean Corpuscular Hemoglobin 30.8 pg (27.0-33.0); Mean Corpuscular Volume 91.3 fL (80.0-98.0); Mean Platelet Volume 10.9 fL (9.4-12.4); Monocytes Absolute Auto 0.9 X10*3/uL (0.1-1.2); Monocytes Percent Auto 6.7 % (2-11); Neutrophils Absolute Auto 9.8 x10*3/uL (2.0-8.3); Neutrophils Percent Auto 76.7 % (45-73); Platelet Count 276 X10*3/uL (160-400); Red Blood Count 4.61 X10*6/uL (4.60-5.80); Red Cell Distribution Width 12.6 % (11.0-16.0); White Blood Count 12.8 X10*3/uL (4.8-10.8)
[2023-12-16 16:27] LABS: Anion Gap 12 (12-20); Blood Urea Nitrogen 19 mg/dL (9-16); C Reactive Protein 5.56 mg/dL (< or = 0.50); Calcium 10.2 mg/dL (8.4-10.2); Carbon Dioxide 29 mmol/L (22-29); Chloride 101 mmol/L (96-108); Estimated Glomerular Filt Rate 49; Glucose Random 81 mg/dL (60-115); Potassium 4.8 mmol/L (3.3-5.1); Sodium 137 mmol/L (135-145); Uric Acid 6.5 mg/dL (3.4-7.0)
[2023-12-16 16:37] LABS: Erythrocyte Sedimentation Rate 25 MM/HR (0-15)
[2023-12-17 09:08] LABS: Lyme Abs Screen <0.90 index
== END 2023-12-16 15:27 | disposition home or self-care (01) ==
LOC: HO.HHCL 15:26
PROVIDERS: Visit Provider Emergency Medicine
DX: M25.532 Pain in left wrist (principal); M25.432 Effusion, left wrist; M79.642 Pain in left hand; M79.89 Other specified soft tissue disorders
CPT/HCPCS: 36415; 73110; 80048; 84550; 85025; 85652; 86140; 86617; 86618

== ENCOUNTER 2023-12-18 13:05 | Emergency (ER) | payer MEDICARE, SELFPAY ==
--- NOTE | 2023-12-18 13:09 | ED.GENADULT ---
HPI - General Adult General Chief complaint: Recheck/Abnormal Lab/Rx Stated complaint: abnormal labs Time Seen by Provider: 12/18/23 13:52 Source: patient, RN notes reviewed and old records reviewed Mode of arrival: ambulatory History of Present Illness ED Provider: Maricarmen Fernandez PA-C HPI narrative: 73-year-old male with a past medical history of peripheral arterial disease, past ETOH abuse, multiple intracranial bleeds, DVT s/p IVC filter, HTN, seizures, presenting to the ED sent in from [facility] for abnormal labs done outpatient. Patient was evaluated for left wrist pain and swelling, noted to have abnormal renal function. Patient was prescribed doxycycline, Keflex, and Tylenol with improvement in symptoms however was instructed to come to the ED. States he was tested for possible tick-borne illnesses. PCP also recommended possible ultrasound to rule out blood clot. Patient denies known injury, trauma, fall, fever/chills, numbness, tingling, weakness. Unclear history of gout Related Data Home Medications ?Medication ?Instructions ?Recorded ?Confirmed amlodipine 5 mg tablet 5 mg PO DAILY 06/10/23 lisinopril 20 mg tablet 20 mg PO DAILY 06/10/23 Previous Rx's ?Medication ?Instructions ?Recorded levetiracetam 500 mg tablet 500 mg PO BID #60 tabs 09/02/21 (Keppra) prednisone 20 mg tablet 40 mg (2 x 20 mg) PO DAILY 5 days 12/18/23 #10 tabs Allergies Allergy/AdvReac Type Severity Reaction Status Date / Time No Known Allergies Allergy Verified 12/18/23 13:17 [No Known Allergies*] Review of Systems Review of Systems: Constitutional: =No Fever, No Chills ENT/Mouth: No Ear Pain, No Nasal Congestion, No sore throat, No Rhinorrhea, No Swallowing Difficulty Cardiovascular: No Chest Pain, No SOB Respiratory: No Cough, No Sputum Gastrointestinal: No Nausea, No Vomiting, No Diarrhea, No Constipation, No Abdominal pain Genitourinary: No Dysuria, No Urinary Frequency, No Hematuria, No Urinary Incontinence/retention, No Urgency, No Flank Pain Musculoskeletal: + joint pain, No Myalgias, + Joint Swelling Skin: No Skin Lesions, No rash Neuro: No Weakness, No Numbness, No Paresthesias Yes all other systems are reviewed and are negative Constitutional: Constitutional: Reports as per HPI [facility] Past Medical History Attestation statement: The following information was validated with the patient. Source: old records reviewed Surgical History History of tonsillectomy Social History Social History Patient Tobacco Use Status: Current everyday Tobacco user Cigarettes Per Day: 5 Advance Directives: No Advance Directives Information Provided: Yes Physical Exam ED Vital Signs: Vital Signs - 24 hr 12/18/23 13:12 12/18/23 15:17 Temperature 97.1 F 98.3 F Pulse Rate 82 76 Respiratory Rate 16 16 Blood Pressure 159/87 H 171/83 H Pulse Oximetry 95 97 Oxygen Delivery Method Room Air Room Air BMI result Body Mass Index 30.9 Const General: cooperative, healthy appearing and no acute distress Orientation/consciousness: patient oriented x3 Limitations: no limitations HENMT Head: Yes normal to inspection and Yes atraumatic Ears: hearing grossly normal bilaterally General nose exam: Normal external nose present Face and sinus: Yes normal facial exam Eyes General: appearance normal, both eyes and all related structures EOM: EOMs intact bilaterally Neck Neck: Yes normal visual inspection and Yes no meningeal signs Resp Effort & Inspection: normal respiratory effort and no respiratory distress Auscultation: clear to auscultation bilaterally Cardio Rate: regular rate Heart sounds: S1 normal heart sound present and S2 normal heart sound present Skin Rashes: no rashes Wounds: no wounds Neuro General: patient oriented x3, tone normal and no meningeal signs Cranial nerves: Yes CN's II-XII intact bilaterally Gait exam (Neuro): Normal gait present Extrem Other: + left wrist with dorsal swelling > ulnar aspect with faint erythema. No warmth. Mildly tender to palpation. Neurovascularly intact. No crepitus. No circumferential erythema, ecchymosis, or streaking. Course Course Course Narrative: This is a Rapid Medical Examination (RME) performed by Veena Marie PA-C in triage. Full HPI, ROS, assessment and treatment plan per primary provider in the Main ED. 73 yo male with history of former ETOH use, history of multiple intracranial bleeds, DVT s/p IVC filter, HTN, seizures who presents to the ER for evaluation of abnormal labs that were done by his PCP. He has labs and x-ray done on 6/13 for swelling, redness and pain in the left wrist x2 weeks. He was started on doxycycline for possible tick borne process. PCP called and told family to bring him in for abnormal kidneys and to possibly get ultrasound to rule out a blood clot? Plan: repeat labs today to ensure improvement in very mild REYES, trend WBC. no role for venous U/S to r/o DVT - swelling of the dorsum of the left hand is minimal and overall much improved w/ wrist brace from PCP -no leukocytosis. REYES resolved. Uric acid level mildly elevated > will treat for gout. XR wrist LT min 3V IMPRESSION: 1. Circumferential soft tissue swelling without acute osseous abnormality. 2. Mild degenerative arthritis at the triscaphe and first carpometacarpal joints, slightly progressed. > volar splint applied Results discussed with patient including worrisome signs and symptoms and strict return precautions, and when to return to the emergency department. They verbalized understanding and feel safe for discharge at this time. Medical Decision Making Medical Decision Making [facility] Narrative: 73-year-old male with a past medical history of peripheral arterial disease, past ETOH abuse, multiple intracranial bleeds, DVT s/p IVC filter, HTN, seizures, presenting to the ED sent in from [facility] for abnormal labs done outpatient. Patient was evaluated for left wrist pain and swelling, noted to have abnormal renal function. On exam vital signs stable, NAD, nontoxic appearing, patient reports overall improvement in left wrist pain/swelling since initiating medications but was instructed to come to the ED. physical exam as above. Concern for gout vs osteoarthritis vs possible improving cellulitis. Concern for REYES/dehydration. Low suspicion for renal stone/pyelo, septic joint/arthritis, osteomyelitis, or DVT Plan: Repeat labs, x-ray. No need for ultrasound at this time as DVT unlikely Please refer to course for remaining clinical decision making, interpretation of labs/imaging results, and discussions with consultants and/or family members. Differential Diagnosis Differential Diagnoses: The differential diagnosis associated with the presentation includes As above Admission/Observation Consideration of admission/observation: Escalation of care including admission/observation considered Lab Data [facility] Lab Attestation statement: I reviewed the patient's lab results. 12/18/23 13:49 12/18/23 13:49 Labs: Lab Results 12/18/23 Range/Units 13:49 WBC 8.6 (4.8-10.8) X10*3/uL RBC 4.53 L (4.60-5.80) X10*6/uL Hgb 14.1 (14.0-18.0) g/dl Hct 41.3 L (42.0-52.0) % MCV 91.2 (80.0-98.0) fL MCH 31.1 (27.0-33.0) pg MCHC 34.1 (31.0-36.0) g/dl RDW 12.2 (11.0-16.0) % Plt Count 252 (160-400) X10*3/uL MPV 11.1 (9.4-12.4) fL Immature Gran % (Auto) 0.8 H (0.0-0.4) % Neut % (Auto) 74.4 H (45-73) % Lymph % (Auto) 15.5 L (20-40) % [place] % (Auto) 5.5 (2-11) % Eos % (Auto) 3.0 (0-4) % Baso % (Auto) 0.8 (0-2) % Lymph # (Auto) 1.3 (1.2-4.9) X10*3/uL [place] # (Auto) 0.5 (0.1-1.2) X10*3/uL Eos # (Auto) 0.3 (0.0-0.4) X10*3/uL Baso # (Auto) 0.1 (0.0-0.2) X10*3/uL Abs Immat Gran (auto) 0.07 H (0.00-0.03) X10*3/uL Absolute Neuts (auto) 6.4 (2.0-8.3) x10*3/uL Absolute Nucleated RBC 0.000 (0.0-0.012) X10*3/uL Nucleated RBC % (auto) 0.0 (0.0-0.2) /100WBC Sodium 140 (135-145) mmol/L Potassium 4.4 (3.3-5.1) mmol/L Chloride 106 (96-108) mmol/L Carbon Dioxide 26 (22-29) mmol/L Anion Gap 12 (12-20) BUN 18 H (9-16) mg/dL Creatinine 1.03 (0.5-1.4) mg/dL Estim Creat Clear Calc 61.5 Estimated GFR > 60 Random Glucose 113 (60-115) mg/dL Uric Acid 7.5 H (3.4-7.0) mg/dL Calcium 10.2 (8.4-10.2) mg/dL Independent Interpretation I performed an independent interpretation of an: Plain X-Ray Radiology Impression Discussion of test interpretation with radiology: I have reviewed the radiologist's reading. Independent Historian Clinical information obtained from an independent historian. History obtained from or confirmed by: Other (Daughter) External Record Review External record reviewed: Inpatient record, Office record, Outpatient record, Prior outpatient labs, Prior outpatient radiology, Primary care record and Outside ED record Tests considered The following testing was considered but not selected: As above Prescription Management I considered prescription management with: Pain Medication and Antibiotic Chronic Conditions Patient?s care impacted by: Other Discharge Plan Discharge Clinical Impression: Arthritis of wrist, Gout Patient Disposition: Home, Self-Care Instructions: Low Purine Diet (ED), Osteoarthritis (DC), Gout (ED) Additional Instructions: Continue taking previously prescribed medications in addition start taking prednisone. Wear wrist splint for comfort and stability. Ice. Take Tylenol for pain. Follow-up with her doctor. If symptoms persist or worsen, area becomes more red/swollen or you have fever, return to the emergency department Prescriptions: New prednisone 20 mg tablet 40 mg PO DAILY 5 Days Qty: 10 0RF No Action levetiracetam [Keppra] 500 mg tablet 500 mg PO BID Qty: 60 0RF lisinopril 20 mg tablet 20 mg PO DAILY amlodipine 5 mg tablet 5 mg PO DAILY Referrals: ED Physician,Generic [Physician] - 5 days Print Language: Mongolian
[2023-12-18 13:12] VITALS: BP 159/87; PULSE 82; RESP 16; TEMP 36.2; O2SAT 95; BMI 30.9
--- OUTSIDE RECORDS SUMMARY | 2023-12-18 13:52 | XMS_ITS | Continuity of Care Document ---
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 Name Role Phone Ryland TILLMAN, Hanna Gaffney Primary Care Physician Encounter [facility] [place] Date(s): 06/16/23 - 07/22/[address] [address] Attending Physician: Hanna Marcelino MD Admitting Physician: Hanna Marcelino MD Referring Physician: Hanna Marcelino MD Allergies, Adverse Reactions, Alerts No Known Allergies Medications albuterol 90 mcg/inh inhalation powder 2 puffs, Inhalation, Every 6 hours, PRN as needed, # 1 each, 0 Refills, Maintenance, 09/07/21 9:54:00 EST, Powder, [facility], Partial fill upon patient request if the prescription is for a schedule II opioid drug., 2 puffs Inhalation Ev... Start Date: 09/07/21 Status: Ordered Carafate 1 gm oral tablet 1 Gm, 1, tablet, By Mouth, 4 times a day, # 120 tablet, Refills 0, Tot. Refills 0, Maintenance, 09/02/21 20:49:00 EST, Print Requisition, Partial fill upon patient request if the prescription is for a schedule II opioid drug. Start Date: 09/02/21 Status: Ordered ergocalciferol 70968 iu oral capsule 50,000 International_Units, 1, capsule, By Mouth, Every week, # 30 capsule, Refills 0, Maintenance,09/04/21 12:05:00 EST, Partial fill upon patient request if the prescription is for a schedule II opioid drug. Start Date: 09/04/21 Status: Ordered levETIRAcetam 500 mg oral tablet 2 tablet = 1,000 mg, By Mouth, 2 times a day, # 120 tablet, 2 Refills, Maintenance, 09/07/21 9:41:00 EST, Tablet, [facility], Partial fill upon patient request if the prescription is for a schedule II opioid drug., 163, cm, 09/02/21 21:0... Start Date: 09/07/21 Stop Date: 12/06/21 Status: Ordered lisinopril 20 mg oral tablet 20 mg, 1, tablet, By Mouth, Daily, # 30 tablet, Refills 0, Tot. Refills 0, Maintenance, 10/17/19 13:04:00 EDT, Print Requisition Start Date: 10/17/19 Status: Ordered omeprazole 20 mg oral enteric coated capsule 1 capsule = 20 mg, By Mouth, Daily, # 30 capsule, 0 Refills, Maintenance, 09/02/21 20:48:00 EST, ECCapsule, Partial fill upon patient request if the prescription is for a schedule II opioid drug. Start Date: 09/02/21 Status: Ordered Pepcid Complete 800 mg-10 mg-165 mg oral tablet, chewable 1 tablet, By Mouth, Every 12 hours, PRN for dyspepsia, # 20 tablet, 0 Refills, Maintenance, 09/04/21 12:06:00 EST, Chew Tablet, Partial fill upon patient request if the prescription is for a scheduleII opioid drug. Start Date: 09/04/21 Status: Ordered Refresh - solution 1 drops, Eyes, Both, 2 times a day, PRN for dry eyes, # 15 mL, 0 Refills, Maintenance, 09/04/21 12:06:00 EST, Solution, Partial fill upon patient request if the prescription is for a schedule II opioid drug. Start Date: 09/04/21 Status: Ordered Problem List Condition Confirmation Course Effective Dates Status Health St atus Informant Hypertension Confirmed Active Intracranial hemorrhage Confirmed Active Social History Social History Type Response Smoking Status Smoker, current stat us unknown entered on: 09/02/21 Sex Patient Care team information Care Team Personnel Name: Johana Baca RN Position: S RN Member Role: Primary Care Nurse Name: Heriberto Johns RN Position: S RN Member Role: Primary Care Nurse Name: Hanna Marcelino MD Position: [facility] Outreach Member Role: PCP Address: Address: [address] [place] [id number] Name: Bal Little MD Position: [facility] Renal MD Member Role: Lifetime Consulting Physician Address: Address: [address] [place] [address] [id number] [facility] [place] [address]- Name: José Miguel Torres RN Position: S RN Member Role: Primary Care Nurse Name: Anca Rivas RN Position: [facility] SN RN Member Role: Primary Care Nurse Name: Miriam Burroughs RN Position: S RN Member Role: Primary Care Nurse Name: Casey Khan MD Position: [facility] Renal MD Member Role: Lifetime Consulting Physician Address: Address: [address] [place] [address] [facility] [place] [address]- Name: Elayne Scott RN Position: S RN Member Role: Primary Care Nurse Name: Melba Holliday RN Position: S RN Member Role: Primary Care Nurse Care Team Related Persons Name: SHAR SIFUENTES Name: LAZARA SIFUENTES Address: [address] [place] [address]
--- OUTSIDE RECORDS SUMMARY | 2023-12-18 13:52 | XMS_ITS | Continuity of Care Document ---
Author Organization [facility] ter Address [address] [place] [address]- Care Team Providers Care Space Systems Operations Manager Name Role Phone Ryland TILLMAN, Hanna Gaffney Primary Care Physician Encounter [facility] Date(s): 11/09/19 - 11/14/[address] [address]- [facility] Discharge Disposition: A-Transfer SNF Attending Physician: Oumou Olvera MD Admitting Physician: Lukas Winkler MD Referring Physician: Not on Staff, Referring MD Allergies, Adverse Reactions, Alerts Substance Reaction Severity Status NKA Active Medications acetaminophen 325 mg oral tablet 650 mg, By Mouth, Every 4 hours, PRN, # 30 tablet, Refills 0, Tot. Refills 0, Acute 10/16/20 13:04:00 EDT, Headache, 10/17/19 13:04:00 EDT, Print Requisition Start Date: 10/17/19 Stop Date: 10/16/20 Status: Ordered amoxicillin 875 mg oral tablet = 875 mg, By Mouth, 2 times a day, 0 Refills, Maintenance, 11/15/19 21:00:00 EDT, Tablet Start Date: 11/15/19 Status: Ordered cyanocobalamin 1000 mcg oral tablet 1,000 mcg, 1, tablet, By Mouth, Daily, Refills 0, Maintenance, 11/14/19 11:47:00 EDT Start Date: 11/14/19 Status: Ordered Docusate Sodium Capsule 100 mg, 1, capsule, By Mouth, 2 times a day, Refills 0, Maintenance, 11/14/19 11:47:00 EDT Start Date: 11/14/19 Status: Ordered folic acid 1 mg oral tablet 1 mg, 1, tablet, By Mouth, Daily, Refills 0, Maintenance, 11/14/19 11:47:00 EDT Start Date: 11/14/19 Status: Ordered Lidocaine 5% Topical 1 applicator, Topically, Daily, 0 Refills, Maintenance, Ointment Start Date: 11/14/19 Status: Ordered lidocaine 5% topical film Topically, Daily, 0 Refills, Maintenance, 11/14/19 11:47:00 EDT, Patch Start Date: 11/14/19 Status: Ordered lisinopril 20 mg oral tablet 20 mg, 1, tablet, By Mouth, Daily, # 30 tablet, Refills 0, Tot. Refills 0, Maintenance, 10/17/19 13:04:00 EDT, Print Requisition Start Date: 10/17/19 Status: Ordered Multivitamin Tablet 1 tablet, By Mouth, Daily, 0 Refills, Maintenance, 11/14/19 11:48:00 EDT, Tablet Start Date: 11/14/19 Status: Ordered niCARdipine 20 mg oral capsule 2 capsule = 40 mg, By Mouth, Every 8 hours, # 180 capsule, 0 Refills, Maintenance, 10/17/19 13:04:00 EDT, Capsule Start Date: 10/17/19 Status: Ordered Pyridoxine Tablet 50 mg, By Mouth, Daily, Refills 0, Maintenance, 11/14/19 11:48:00 EDT Start Date: 11/14/19 Status: Ordered thiamine 100 mg oral tablet 100 mg, 1, tablet, By Mouth, 2 times a day, Refills 0, Maintenance, 11/14/19 11:48:00 EDT Start Date: 11/14/19 Status: Ordered Vitamin D 71205 iu oral capsule 50,000 International_Units, 1, capsule, By Mouth, Every week, # 4 capsule, Refills 0, Maintenance, 10/14/19 9:45:00 EDT Start Date: 10/14/19 Status: Ordered Problem List Condition Effective Dates Status Health Status Inform ant Hypertension(Confirmed) Active Intracranial hemorrhage(Confirmed) Active Results Orders for Microbiology Reports Name Date Blood Culture 11/09/19 Blood Culture #2 11/09/19 Urine Culture (URINE CULTURE) 11/09/19 Microbiology Reports TEST:Blood Culture STATUS:Auth (Verified) BODY SITE: SOURCE:Blood COLLECTED DATE/TIME:11/09/19 9:47 AM Blood Culture SPECIMEN DESCRIPTION : BLOOD L SPECIAL REQUESTS : NONE CULTURE : NO GROWTH 5 DAYS. REPORT STATUS : FINAL 11/14/2019 TEST:Blood Culture, Second Order STATUS:Auth (Verified) BODY SITE: SOURCE:Blood COLLECTED DATE/TIME:11/09/19 9:47 AM Blood Culture, Second Order SPECIMEN DESCRIPTION : BLOOD R SPECIAL REQUESTS : NONE CULTURE : NO GROWTH 5 DAYS. REPORT STATUS : FINAL 11/14/2019 TEST:Urine Culture STATUS:Auth (Verified) BODY SITE: SOURCE:URINE COLLECTED DATE/TIME:11/09/19 2:35 AM Urine Culture SPECIMEN DESCRIPTION : URINE CLEAN CATCH/MIDSTREAM SPECIAL REQUESTS : NONE Reflexed from [id number] CULTURE : >100,000 COL/ML ENTEROCOCCUS FAECALIS REPORT STATUS : FINAL 11/11/2019 ORGANISM >100,000 COL/ML ENTEROCOCCUS FAECALIS METHOD MIN. INHIB. CONC. (MCG/ML) AMPICILLIN SUSCEPTIBLE CIPROFLOXACIN SUSCEPTIBLE NITROFURANTOIN SUSCEPTIBLE LEVOFLOXACIN SUSCEPTIBLE VANCOMYCIN SUSCEPTIBLE TETRACYCLINE RESISTANT GENTAMICIN SYNERGY ACTIVE IN SYNERGY STREPTOMYCIN SYNERGY ACTIVE IN SYNERGY Radiology Reports * Exam Date Time Procedure Performing Provider Status 11/10/19 3:00 PM Knee 1 or 2 Views Right Emily Solorzano na; Auth (Verified) Notes: (Knee 1 or 2 Views Right) Reason For Exam: Pain RESULT: Knee 1 or 2 Views Right Knee 1 or 2 Views Right, views Reason: Pain; Clinical Question(s): Arthritis; Hx of Present Illness: patient from home, c o right leg pain, faint pedal pulse felt by ems, in bed for 2 weeks, patient was recently admitted for sdh; Other Objective Findings: pt alert and awake. +2 nonpitting edema to Left foot and trace edema to Rtfoot. VSS ewkind4 uc1 pard f0 fs20 pt alert and awake. +2 nonpitting edema to Left COMPARISON: None. FINDINGS: There is no evidence of acute or healing fracture, dislocation or bone lesion. Mild osteophytes of tibial spine. No osteochondral defects or intra-articular loose bodies. No evidence of joint effusion. IMPRESSION: No acute fracture. WSN: [id number] Ordering Physician: Leonel Torres Dictated By: Luis Eduardo Orr MD Dictated Date/Time: 11/10/19 3:21 pm Reviewed By: Luis Eduardo Orr MD Signed By: Luis Eduardo Orr MD Signed Date/Time: 11/10/19 3:21 pm Transcribed By: MACIEL Transcribed Date/Time: 11/10/19 3:20 pm * Exam Date Time Procedure Performing Provider Status 11/10/19 2:49 PM Knee 1 or 2 Views Left Fabby Solorzano (Verified) Notes: (Knee 1 or 2 Views Left) Reason For Exam: Pain RESULT: Knee 1 or 2 Views Left Knee 3 Views Left INDICATION: Pain; Clinical Question(s): Arthritis COMPARISON: None. FINDINGS: There is no evidence of acute or healing fracture, dislocation or bone lesion. Minimal tricompartmental joint space narrowing. Very tiny rounded densities in the posterior medialtibiofemoral joint. Small joint effusion. Mild vascular calcification. IMPRESSION: No acute fracture or dislocation. Mild degenerative change with a small joint effusion. Possible tiny intra-articular bodies. I have personally reviewed the images and I agree with this report. WSN: [id number] Ordering Physician: Leonel Torres Dictated By: Kay Rodriguez DO Dictated Date/Time: 11/10/19 3:30 pm Reviewed By: Fitz Rodriguez MD Signed By: Fitz Rodriguez MD Signed Date/Time: 11/10/19 3:35 pm Transcribed By: MACIEL Transcribed Date/Time: 11/10/19 3:27 pm * Exam Date Time Procedure Performing Provider Status 11/08/19 11:16 PM Chest Portable Dontrell Adorno (Ve rified) Notes: (Chest Portable) Reason For Exam: Shortness of Breath RESULT: Chest Portable Chest Portable Refer to EMR; Reason: Shortness of Breath; Clinical Question(s): CHF; Hx of Present Illness: patient from home, c o right leg pain, faint pedal pulse felt by ems, in bed for 2 weeks, patient was recently admitted for sdh; Other Objective Findings: pt alert and awake. +2 nonpitting edema to Left foot and trace edema to Rt foot. VSS ewkind4 uc1 pard f0 fs20 pt alert and awake. +2 nonpitting edema t COMPARISON: 10/10/2019 FINDINGS: LINES AND TUBES: None. LUNGS AND PLEURA: Clear lungs. Normal pulmonary vascularity. No pleural effusion. No pneumothorax. HEART, MEDIASTINUM AND BEVERLEY: Heart is normal in size. Normal mediastinal and hilar contour. BONES AND SOFT TISSUES: No acute abnormality. IMPRESSION: No acute abnormality. WSN: [id number] Ordering Physician: Josee Mcallister Dictated By: Khalif Dhillon MD Dictated Date/Time: 11/08/19 11:33 p Reviewed By: Khalif Dhillon MD Signed By: Khalif Dhillon MD Signed Date/Time: 11/08/19 11:33 pm Transcribed By: MACIEL Transcribed Date/Time: 11/08/19 11:25 pm * Exam Date Time Procedure Performing Provider Status 11/08/19 6:10 PM Foot Min 3 Views Right Herminia Maravilla ; Auth (Verified) Notes: (Foot Min 3 Views Right) Reason For Exam: Pain RESULT: Foot Min 3 Views Right Foot Min 3 Views Left, Foot Min 3 Views Right CLINICAL INDICATION: Refer to EMR; Reason: Pain; Clinical Question(s): Fracture; Hx of Present Illness: patient from home, c o right leg pain, faint pedal pulse felt by ems, in bed for 2 weeks, patient was recently admitted for sdh; Other Objective Findings: pt alert and awake. +2 nonpitting edema to Left foot and trace edema to Rt foot. VSS ewkind4 uc1 pard f0 fs20 pt alert and awake. +2 nonpitting edema to Left tang COMPARISONS: None TECHNIQUE: AP, lateral and oblique views of the left foot were obtained. FINDINGS: Left foot: There is no fracture or dislocation. There is mild hallux valgus of the left great toe. There is mild first MTP joint space narrowing. Otherwise MTP and IP joint spaces are maintained. The Lisfranc joint space is normally aligned. No retained foreign body. Hindfoot midfoot alignment is normal. There is a prominent plantar calcaneal heel spur. Right foot: There is no fracture or dislocation. There is mild hallux valgus of the right great toe. MTP and IP joint spaces are maintained. The Lisfranc joint space is normally aligned. No retained foreign body. Hindfoot midfoot alignment is normal. There is a small plantar calcaneal heel spur. IMPRESSION: No evidence for fracture or dislocation. Plantar calcaneal heel spurs. Mild degenerative changes at first MTP joints, left greater than right. WSN: [id number] Ordering Physician: Josee Mcallister Dictated By: Fitz Newsome MD Dictated Date/Time: 11/08/19 6:22 pm Reviewed By: Fitz Newsome MD Signed By: Fitz Newsome MD Signed Date/Time: 11/08/19 6:22 pm Transcribed By: MACIEL Transcribed Date/Time: 11/08/19 6:11 pm * Exam Date Time Procedure Performing Provider Status 11/08/19 6:10 PM Foot Min 3 Views Left Reniat , Herminia; Auth (Verified) Notes: (Foot Min 3 Views Left) Reason For Exam: Pain RESULT: Foot Min 3 Views Left Foot Min 3 Views Left, Foot Min 3 Views Right CLINICAL INDICATION: Refer to EMR; Reason: Pain; Clinical Question(s): Fracture; Hx of Present Illness: patient from home, c o right leg pain, faint pedal pulse felt by ems, in bed for 2 weeks, patient was recently admitted for sdh; Other Objective Findings: pt alert and awake. +2 nonpitting edema to Left foot and trace edema to Rt foot. VSS ewkind4 uc1 pard f0 fs20 pt alert and awake. +2 nonpitting edema to Left tang COMPARISONS: None TECHNIQUE: AP, lateral and oblique views of the left foot were obtained. FINDINGS: Left foot: There is no fracture or dislocation. There is mild hallux valgus of the left great toe. There is mild first MTP joint space narrowing. Otherwise MTP and IP joint spaces are maintained. The Lisfranc joint space is normally aligned. No retained foreign body. Hindfoot midfoot alignment is normal. There is a prominent plantar calcaneal heel spur. Right foot: There is no fracture or dislocation. There is mild hallux valgus of the right great toe. MTP and IP joint spaces are maintained. The Lisfranc joint space is normally aligned. No retained foreign body. Hindfoot midfoot alignment is normal. There is a small plantar calcaneal heel spur. IMPRESSION: No evidence for fracture or dislocation. Plantar calcaneal heel spurs. Mild degenerative changes at first MTP joints, left greater than right. WSN: [id number] Ordering Physician: Josee Mcallister Dictated By: Fitz Newsome MD Dictated Date/Time: 11/08/19 6:22 pm Reviewed By: Fitz Newsome MD Signed By: Fitz Newsome MD Signed Date/Time: 11/08/19 6:22 pm Transcribed By: MACIEL Transcribed Date/Time: 11/08/19 6:11 pm Vital Signs Most recent to oldest [Reference Range]: 1 2 3 Height 162 cm (11/14/19 7:55 AM) 162 cm (11/14/19 12:22 AM) 162 cm (11/13/19 7:24 PM) Weight 66.5 kg (11/14/19 9:37 AM) 67.0 kg (11/13/19 5:38 AM) 68.6 kg (11/12/19 5:39 AM) Oxygen Saturation [94-100 %] 96 % (11/14/19 7:55 AM) 95 % (11/14/19 12:22 AM) 96 % (11/13/19 7:24 PM) Pulse Rate [55-90 bpm] 72 bpm (11/14/19 7:55 AM) 81 bpm (11/14/19 12:22 AM) 89 bpm (11/13/19 7:24 PM) Body Mass Index [18.5-24.99] 26.41 *H* (11/09/19 1:32 AM) Blood Pressure [90-138/55-84 mm Hg] 144/70mm Hg *H* (11/14/19 7:55 AM) 144/70mm Hg *H* (11/14/19 7:48 AM) 144/70mm Hg *H* (11/14/19 7:47 AM) Respiratory Rate [16-30 br/min] 20 br/min (11/14/19 7:55 AM) 18 br/min (11/14/19 12:22 AM) 18 br/min (11/13/19 7:24 PM) Temperature [96.8-100.4 DegF] 98.2 DegF (11/14/19 7:55 AM) 98.2 DegF (11/14/19 12:22 AM) 97.9 DegF (11/13/19 7:24 PM) Mode of Delivery (Oxygen) Room air (11/14/19 7:55 AM) Room air (11/14/19 12:22 AM) Room air (11/13/19 7:24 PM) Blood pressure sites Arm, right (11/14/19 7:55 AM) Arm, left (11/14/19 12:22 AM) Arm, left (11/13/19 7:24 PM) Temperature Route Oral (11/14/19 7:55 AM) Oral (11/14/19 12:22 AM) Oral (11/13/19 7:24 PM) Dry Weight 69.3 kg (11/09/19 1:32 AM) Weight Obtained Via Standing scale (11/14/19 9:37 AM) Bed scale (11/13/19 5:38 AM) Bed scale (11/12/19 5:39 AM)
--- OUTSIDE RECORDS SUMMARY | 2023-12-18 13:52 | XMS_ITS | Continuity of Care Document ---
Author Organization [facility] Address [address] [place] [address]- Care Team Providers Care Dairy Department Manager Name Role Phone Hanna Marcelino MD Primary Care Physician Encounter [facility] Date(s): 01/16/20 - 01/23/20 [facility] [address] [place] [address]- [facility] Attending Physician: Brian Quevedo MD Admitting Physician: Brian Quevedo MD Referring Physician: Hanna Marcelino MD Allergies, Adverse Reactions, Alerts Substance Reaction Severity Status NKA Active Medications acetaminophen 325 mg oral tablet 650 mg, By Mouth, Every 4 hours, PRN, # 30 tablet, Refills 0, Tot. Refills 0, Acute 10/16/20 13:04:00 EDT, Headache, 10/17/19 13:04:00 EDT, Print Requisition Start Date: 10/17/19 Stop Date: 10/16/20 Status: Ordered gabapentin 100 mg oral capsule 100 mg, 1, capsule, By Mouth, 3 times a day, # 90 capsule, Refills 0, Maintenance, 01/16/20 11:35:00 EDT Start Date: 01/16/20 Status: Ordered lisinopril 20 mg oral tablet 20 mg, 1, tablet, By Mouth, Daily, # 30 tablet, Refills 0, Tot. Refills 0, Maintenance, 10/17/19 13:04:00 EDT, Print Requisition Start Date: 10/17/19 Status: Ordered niCARdipine 20 mg oral capsule 2 capsule = 40 mg, By Mouth, Every 8 hours, # 180 capsule, 0 Refills, Maintenance, 10/17/19 13:04:00 EDT, Capsule Start Date: 10/17/19 Status: Ordered Vitamin D 88267 iu oral capsule 50,000 International_Units, 1, capsule, By Mouth, Every week, # 4 capsule, Refills 0, Maintenance, 10/14/19 9:45:00 EDT Start Date: 10/14/19 Status: Ordered Problem List Condition Effective Dates Status Health Status Inform ant Hypertension(Confirmed) Active Intracranial hemorrhage(Confirmed) Active Vital Signs Most recent to oldest [Reference Range]: 1 Height 162 cm (01/16/20 11:27 AM) Weight 73.5 kg (01/16/20 11:27 AM) Oxygen Saturation [94-100 %] 100 % (01/16/20 11:27 AM) Pulse Rate [55-90 bpm] 72 bpm (01/16/20 11:27 AM) Body Mass Index [18.5-24.99] 28.01 *H* (01/16/20 11:27 AM) Blood Pressure [90-138/55-84 mm Hg] 118/ 70mm Hg (01/16/20 11:27 AM) Mode of Delivery (Oxygen) Room air (01/16/20 11:27 AM) Blood pressure sites Arm, right (01/16/20 11:27 AM) Weight Obtained Via Patient/family state d (01/16/20 11:27 AM)
--- OUTSIDE RECORDS SUMMARY | 2023-12-18 13:52 | XMS_ITS | Continuity of Care Document ---
Author Organization [facility] Address Unknown Care Team Providers Care Tankerman Name Role Phone Hanna Marcelino MD Primary Care Physician [id number] Date(s): 11/10/21 - 12/10/21 [facility] Attending Physician: Zara Romano Admitting Physician: Zara Romano Referring Physician: Zara Romano Allergies, Adverse Reactions, Alerts No Known Allergies Medications albuterol 90 mcg/inh inhalation powder 2 puffs, Inhalation, Every 6 hours, PRN as needed, # 1 each, 0 Refills, Maintenance, 09/07/21 9:54:00 EST, Powder, [facility], Partial fill upon patient [...] drug. Start Date: 09/02/21 Status: Ordered ergocalciferol 68657 iu oral capsule 50,000 International_Units, 1, capsule, [...] 2 Refills, Maintenance, 09/07/21 9:41:00 EST, Tablet, [facility], Partial fill upon patient [...] Date: 09/04/21 Status: Ordered Problem List Condition Effective Dates Status Health Status Inform ant Hypertension(Confirmed) Active Intracranial hemorrhage(Confirmed) Active Social History Social History Type Response Smoking Status Smoker, current stat us unknown entered on: 09/02/21 Sex
--- OUTSIDE RECORDS SUMMARY | 2023-12-18 13:52 | XMS_ITS | Continuity of Care Document ---
Author Organization [facility] Address [address] [place] [address]- Care Team Providers Care Gill Box Operator Name Role Phone Ryland TILLMAN, Hanna Gaffney Primary Care Physician [place] [facility] [place]/16/20 - 02/15/20 [facility] [address] [place] [address]- [facility] Attending Physician: Admtr, Zara Admitting Physician: AdmtrZara Referring Physician: Admtr, Ar8 Allergies, Adverse Reactions, Alerts Substance Reaction Severity [...] Maintenance, 10/17/19 13:04:00 EDT, Capsule Start Date: 4/14/20 Status: Ordered Vitamin D 96169 iu oral capsule 50,000 International_Units, 1, capsule, By Mouth, Every week, # 4 capsule, Refills 0, Maintenance, 10/14/19 9:45:00 EDT Start Date: 10/14/19 Status: Ordered Problem List Condition Effective Dates Status Health Status Inform ant Hypertension(Confirmed) Active Intracranial hemorrhage(Confirmed) Active
--- OUTSIDE RECORDS SUMMARY | 2023-12-18 13:52 | XMS_ITS | Continuity of Care Document ---
Author Organization [facility] Address [address] [address]- Care Team Providers Care Lean Manufacturing Coordinator Name Role Phone Rylnad TILLMAN, Hanna Gaffney Primary Care Physician Encounter [facility] [place] Date(s): 02/09/20 - 02/16/20 [facility] [address] [address]- [place] Attending Physician: Brian Quevedo MD Admitting Physician: Brian Quevedo MD Referring Physician: Brian Quevedo MD Allergies, Adverse Reactions, Alerts Substance Reaction [...] Start Date: 10/17/19 Status: Ordered Vitamin D 50642 iu oral capsule 50,000 International_Units, 1, capsule, By Mouth, Every week, # 4 capsule, Refills 0, Maintenance, 10/14/19 9:45:00 EDT Start Date: 10/14/19 Status: Ordered Problem List Condition Effective Dates Status Health Status Inform ant Hypertension(Confirmed) Active Intracranial hemorrhage(Confirmed) Active
--- OUTSIDE RECORDS SUMMARY | 2023-12-18 13:52 | XMS_ITS | Continuity of Care Document ---
Author Organization [facility] Address Unknown Care Team Providers Care Planishing Press Operator Name Role Phone Hanna Marcelino MD Primary Care Physician Encounter [id number] Date(s): 09/05/21 - 12/10/21 [facility] Attending Physician: Urbano Rinaldi MD Admitting Physician: Urbano Rinaldi MD Allergies, Adverse Reactions, Alerts No Known Allergies Medications albuterol 90 mcg/inh inhalation powder 2 puffs, Inhalation, Every 6 hours, PRN as needed, # 1 each, 0 Refills, Maintenance, 09/07/21 9:54:00 EST, Powder, [facility], Partial fill upon patient [...] drug. Start Date: 09/02/21 Status: Ordered ergocalciferol 71847 iu oral capsule 50,000 International_Units, 1, capsule, [...] 2 Refills, Maintenance, 09/07/21 9:41:00 EST, Tablet, [facility], Partial fill upon patient [...]
--- OUTSIDE RECORDS SUMMARY | 2023-12-18 13:52 | XMS_ITS | Continuity of Care Document ---
Author Organization [facility] Address [address] [address]- Care Team Providers Care Health Economist Name Role Phone Ryland TILLMAN, Hanna Gaffney Primary Care Physician Encounter [facility] [place] Date(s): 02/09/20 - 03/10/20 [facility] [address] [address]- [place] Attending Physician: Admtr, Ar8 Admitting Physician: Admtr, Ar8 Referring Physician: Admtr, Ar8 Allergies, Adverse Reactions, [...] Start Date: 10/17/19 Status: Ordered Vitamin D 64431 iu oral capsule 50,000 International_Units, 1, capsule, By Mouth, Every week, # 4 capsule, Refills 0, Maintenance, 10/14/19 9:45:00 EDT Start Date: 10/14/19 Status: Ordered Problem List Condition Effective Dates Status Health Status Inform ant Hypertension(Confirmed) Active Intracranial hemorrhage(Confirmed) Active
--- OUTSIDE RECORDS SUMMARY | 2023-12-18 13:52 | XMS_ITS | Continuity of Care Document ---
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 Name Role Phone Ryland TILLMAN, Hanna Gaffney Primary Care Physician Encounter [facility] – [place] Date(s): 09/03/21 - 09/07/[address] [address]- Encounter Diagnosis Pneumonia(Final) - 09/03/21 Discharge Disposition: A-D/C Home Attending Physician: Rachel Horner MD Admitting Physician: Lukas Winkler MD Referring Physician: Not on Staff, Referring MD Allergies, Adverse Reactions, Alerts No Known Allergies Medications albuterol 90 mcg/inh inhalation powder 2 puffs, Inhalation, Every 6 hours, PRN as needed, # 1 each, 0 Refills, Maintenance, 09/07/21 9:54:00 EST, Powder, [facility], Partial fill upon patient request if the prescription is for a schedule II opioid drug., 2 puffs Inhalation Ev... Start Date: 09/07/21 Status: Ordered Augmentin 875 mg-125 mg oral tablet 1 tablet, By Mouth, Every 12 hours, for 2 days, # 4 tablet, 0 Refills, Acute 09/09/21 9:42:00 EST, 09/07/21 9:42:00 EST, Tablet, [facility], Partial fill upon patient request if the prescription is for a schedule II opioid drug., 163, cm... Start Date: 09/07/21 Stop Date: 09/09/21 Status: Ordered Carafate 1 gm oral tablet 1 Gm, 1, tablet, By Mouth, 4 times a day, # 120 tablet, Refills 0, Tot. Refills 0, Maintenance, 09/02/21 20:49:00 EST, Print Requisition, Partial fill upon patient request if the prescription is for a schedule II opioid drug. Start Date: 09/02/21 Status: Ordered ergocalciferol [address]342 iu oral capsule 50,000 [employer], 1, capsule, [...] 2 Refills, Maintenance, 09/07/21 9:41:00 EST, Tablet, [facility], Partial fill upon patient request if the prescription is for a schedule II opioid drug., 163, cm, 09/02/21 21:0... Start Date: 09/07/21 Stop Date: 12/06/21 Status: Ordered lisinopril 20 mg oral tablet 20 mg, 1, tablet, By Mouth, Daily, # 30 tablet, Refills 0, Tot. Refills 0, Maintenance, 10/17/19 13:04:00 EDT, Print Requisition Start Date: 10/17/19 Status: Ordered lisinopril 20 mg oral tablet 20 mg, Tablet, By Mouth, 09/07/21 9:00:00 EST Start Date: 09/07/21 Stop Date: 09/07/21 Status: Completed magnesium oxide 400 mg oral tablet 1 tablet = 400 mg, By Mouth, 2 times a day, for 4 days, # 8 tablet, 0 Refills, Acute 09/11/21 9:41:00 EST, 09/07/21 9:41:00 EST, Tablet, [facility], Partial fill upon patient request ifthe prescription is for a schedule II opioid drug.,... Start Date: 09/07/21 Stop Date: 09/11/21 Status: Ordered omeprazole 20 mg oral enteric [...] opioid drug. Start Date: 09/04/21 Status: Ordered thiamine 100 mg oral tablet See Instructions, 2.5 tablets daily for 2 days then 1 tablet by mouth daily, # 33 tablet, Refills 0, Tot. Refills 0, Acute 10/07/21 9:45:00 EDT, 09/07/21 9:44:00 EST, Instructions Replace Required Details, Route to Pharmacy Electronically, [facility] Start Date: 09/07/21 Stop Date: 10/07/21 Status: Ordered Problem List Condition Effective Dates Status Health Status Inform ant Hypertension(Confirmed) Active Intracranial hemorrhage(Confirmed) Active Results Orders for Microbiology Reports Name Date Blood Culture #2 09/04/21 Blood Culture 09/04/21 Microbiology Reports TEST:Blood Culture, Second Order STATUS:Unauthenticated BODY SITE: SOURCE:Blood COLLECTED DATE/TIME:09/04/21 8:10 AM Blood Culture, Second Order SPECIMEN DESCRIPTION : BLOOD LAC SPECIAL REQUESTS : NONE CULTURE : NO GROWTH 3 DAYS REPORT STATUS : PRELIMINARY REPORT TEST:Blood Culture STATUS:Unauthenticated BODY SITE: SOURCE:Blood COLLECTED DATE/TIME:09/04/21 5:36 AM Blood Culture SPECIMEN DESCRIPTION : BLOOD L HAND SPECIAL REQUESTS : NONE CULTURE : NO GROWTH 3 DAYS REPORT STATUS : PRELIMINARY REPORT Radiology Reports * Exam Date Time Procedure Performing Provider Status 09/03/21 7:39 PM Chest Portable Catie Dougherty; Auth (Verified) Notes: (Chest Portable) Reason For Exam: Shortness of Breath RESULT: Chest Portable Chest Portable Hx of Present Illness: from home feeling unwell x's2 days, poor PO intake x's wks. Was seen at [place] and d c'd. When returned home family reports pt blacked out and had seizure, seen at [facility] again and d c'd at 1:30am, pt walk home alone and was found by PD at 430am. AMS; Reason: Shortness ofBreath; Clinical Question(s): Pneumonia COMPARISON: None. FINDINGS: LINES AND TUBES: None. LUNGS AND PLEURA: Diffusely increased interstitial markings to the left lung greater than right lung. No large pneumothorax. Left costodiaphragmatic angle is out of the field of view. Within this limitation, no large effusion. HEART, MEDIASTINUM AND BEVERLEY: Cardiomediastinal silhouette is within normal limits, exaggerated by technique. Mildly prominent pulmonary vasculature, may represent central pulmonary vascular congestion. BONES AND SOFT TISSUES: No displaced rib fractures. IMPRESSION: Diffusely decreased aeration to the left lung, with asymmetrically increased interstitial markings,may represent left-sided interstitial infectious or inflammatory opacities versus edema. Recommend CT chest for further evaluation. WSN: [id number] Ordering Physician: Angle Case Dictated By: Alex Mehta MD Dictated Date/Time: 09/03/21 7:48 pm Reviewed By: Alex Mehta MD Signed By: Alex Mehta MD Signed Date/Time: 09/03/21 7:48 pm Transcribed By: MACIEL Transcribed Date/Time: 09/03/21 7:46 pm Vital Signs Most recent to oldest [Reference Range]: 1 2 3 Oxygen Saturation [94-100 %] 98 % (09/07/21 11:52 AM) 97 % (09/07/21 7:39 AM) 95 % (09/07/21 3:29 AM) Pulse Rate [55-90 bpm] 93 bpm *H* (09/07/21 11:52 AM) 99 bpm *H* (09/07/21 7:39 AM) 80 bpm (09/07/21 3:29 AM) Blood Pressure [90-138/55-84 mm Hg] 148/84mm Hg *H* (09/07/21 11:52 AM) 150/89mm Hg *H* (09/07/21 8:48 AM) 150/89mm Hg *H* (09/07/21 7:39 AM) Respiratory Rate [16-30 br/min] 20 br/min (09/07/21 11:52 AM) 20 br/min (09/07/21 7:39 AM) 17 br/min (09/07/21 3:29 AM) Temperature [96.8-100.4 DegF] 98.7 DegF (09/07/21 11:52 AM) 97.3 DegF (09/07/21 7:39 AM) 98.1 DegF (09/07/21 3:29 AM) Mode of Delivery (Oxygen) Room air (09/07/21 11:52 AM) Room air (09/07/21 7:39 AM) Room air (09/07/21 3:29 AM) Blood pressure sites Arm, right (09/07/21 11:52 AM) Arm, right (09/07/21 7:39 AM) Arm, right (09/07/21 3:29 AM) Temperature Route Temporal (09/07/21 11:52 AM) Temporal (09/07/21 7:39 AM) Temporal (09/07/21 3:29 AM) Social History Social History Type Response Smoking Status Smoker, current stat us unknown entered on: 09/02/21 Sex
[2023-12-18 13:53] LABS: MANUAL DIFF FLAG NO
[2023-12-18 14:09] LABS: Anion Gap 12 (12-20)
[2023-12-18 14:10] LABS: Blood Urea Nitrogen 18 mg/dL (9-16); Calcium 10.2 mg/dL (8.4-10.2); Carbon Dioxide 26 mmol/L (22-29); Chloride 106 mmol/L (96-108); Creatinine Clr Calc Pharmacy 61.5; Estimated Glomerular Filt Rate > 60; Glucose Random 113 mg/dL (60-115); Potassium 4.4 mmol/L (3.3-5.1); Sodium 140 mmol/L (135-145); Uric Acid 7.5 mg/dL (3.4-7.0)
[2023-12-18 14:19] LABS: Basophils Absolute Auto 0.1 X10*3/uL (0.0-0.2); Basophils Percent Auto 0.8 % (0-2); Eosinophils Absolute Auto 0.3 X10*3/uL (0.0-0.4); Hematocrit 41.3 % (42.0-52.0); Hemoglobin 14.1 g/dl (14.0-18.0); Imm Gran Abs Auto 0.07 X10*3/uL (0.00-0.03); Imm Gran Pct Auto 0.8 % (0.0-0.4); Lymphocytes Absolute Auto 1.3 X10*3/uL (1.2-4.9); Lymphocytes Percent Auto 15.5 % (20-40); Mean Corpuscular HGB Conc 34.1 g/dl (31.0-36.0); Mean Corpuscular Hemoglobin 31.1 pg (27.0-33.0); Mean Corpuscular Volume 91.2 fL (80.0-98.0); Mean Platelet Volume 11.1 fL (9.4-12.4); Monocytes Absolute Auto 0.5 X10*3/uL (0.1-1.2); Monocytes Percent Auto 5.5 % (2-11); Neutrophils Absolute Auto 6.4 x10*3/uL (2.0-8.3); Neutrophils Percent Auto 74.4 % (45-73); Platelet Count 252 X10*3/uL (160-400); Red Blood Count 4.53 X10*6/uL (4.60-5.80); Red Cell Distribution Width 12.2 % (11.0-16.0); White Blood Count 8.6 X10*3/uL (4.8-10.8)
[2023-12-18 15:17] VITALS: BP 171/83; PULSE 76; RESP 16; TEMP 36.8; O2SAT 97
[2023-12-18 15:31] VITALS: BP 171/83; PULSE 76; RESP 16; TEMP 36.8; O2SAT 97
== END 2023-12-18 15:32 | disposition home or self-care (01) ==
PROVIDERS: Physician Assistant; Emergency Provider Emergency Medicine Emergency Medical Services; PCP Internal Medicine
DX: M19.032 Primary osteoarthritis, left wrist (principal); M10.9 Gout, unspecified; M25.532 Pain in left wrist; R94.4 Abnormal results of kidney function studies; F17.210 Nicotine dependence, cigarettes, uncomplicated
CPT/HCPCS: 29125; 29130; 36415; 80048; 84550; 85025; 99283; 99284

== ENCOUNTER 2024-03-24 14:41 | Outpatient (REF) | payer MEDICARE, SELFPAY ==
[2024-03-24 16:54] LABS: Anion Gap 11 (12-20); Blood Urea Nitrogen 8 mg/dL (9-16); Calcium 9.6 mg/dL (8.4-10.2); Carbon Dioxide 25 mmol/L (22-29); Chloride 108 mmol/L (96-108); Estimated Glomerular Filt Rate > 60; Glucose Random 101 mg/dL (60-115); Potassium 3.9 mmol/L (3.3-5.1); Sodium 140 mmol/L (135-145); Uric Acid 8.2 mg/dL (3.4-7.0)
== END 2024-03-24 14:42 | disposition home or self-care (01) ==
LOC: HO.HHCL 14:41
PROVIDERS: Visit Provider Internal Medicine
DX: M1A.0420 Idiopathic chronic gout, left hand, without tophus (tophi) (principal); I10 Essential (primary) hypertension
CPT/HCPCS: 36415; 80048; 84550

== ENCOUNTER 2024-07-03 15:15 | Outpatient (REF) | payer MEDICARE, SELFPAY ==
[2024-07-03 17:00] LABS: Alanine Aminotransferase 28 U/L (0-40); Albumin Level 4.7 g/dL (3.5-5.0); Alkaline Phosphatase 68 U/L (39-117); Aspartate Amino Transferase 35 U/L (5-37); Bilirubin Direct 0.2 mg/dL (0.0-0.5); Bilirubin Total 0.4 mg/dL (0.0-1.0); Cholesterol 171 mg/dL (<200); HDL Cholesterol 34 mg/dL (>40); LDL Cholesterol Calculated 100 mg/dL (<100); Total Protein 7.5 g/dL (6.5-8.0); Triglycerides 189 mg/dL (<150)
== END 2024-07-03 15:16 | disposition home or self-care (01) ==
LOC: HO.HHCL 15:15
PROVIDERS: Visit Provider Internal Medicine
DX: E78.1 Pure hyperglyceridemia (principal)
CPT/HCPCS: 36415; 80061; 80076

== ENCOUNTER 2024-12-15 12:49 | Outpatient (REF) | payer MEDICARE, SELFPAY ==
--- NOTE | ~2024-12-15 | XR_ITS ---
EXAMINATION: XR KNEE, RIGHT CLINICAL INFORMATION: worsening knee pain and swelling COMPARISON: None available. TECHNIQUE: AP, lateral oblique views of the right knee. FINDINGS: No acute cortical disruption or malalignment. Joint space narrowing involving mostly the medial compartment. Suprapatellar bursa joint effusion, small to moderate volume. No lytic or blastic lesions.. Vascular calcifications. XR/XR knee RT 4V IMPRESSION: Medial compartment osteoarthrosis. Suprapatellar bursa joint effusion, small to moderate volume. Electronically signed by: Kevin Barrera MD 12/15/2024 01:32 PM EDT
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
== END 2024-12-15 12:50 | disposition home or self-care (01) ==
LOC: HO.HHCX 12:49
PROVIDERS: Visit Provider Family Medicine
DX: M25.561 Pain in right knee (principal)
CPT/HCPCS: 73564

== ENCOUNTER → 2024-12-15 12:50 | Outpatient (BNV) | payer MEDICARE, SELFPAY | PROVIDERS: Visit Provider Radiology Diagnostic Radiology | DX: M17.11 Unilateral primary osteoarthritis, right knee (principal) | CPT/HCPCS: 73564 ==

== ENCOUNTER 2025-01-31 09:16 | Outpatient (REF) | payer MEDICARE, SELFPAY ==
--- OUTSIDE RECORDS SUMMARY | 2025-01-31 09:46 | XMS_ITS | Clinical Summary ---
Author Organization [employer] Address [address] [place] [address] Care Team Providers Care Cell Manager Name Role Phone Hanna Marcelino MD [...] itching of eyes). 10 mL 3 Active ketoconazole (NIZOral) 2 % shampooIndication s:Seborrheic [...] at bedtime (pain). 150 g 3 Active hydrocortisone 2.5 % creamIndications: Dermatitis Apply pea sized amount to skin bid for 1 week (outside of ears) 15 g 025 2024 Discontinued(M ed list cleanup (will not trigger notification to Pharmacy)) Active [...] they can also reach out to [facility] for technical/IT assistance. I told them to reach out to Medicare/[employer] ocular care aide. I'll have one of our CM reach to to them prior to next appt. Assessment & Plan (03/17/2024 2:44 PM EDT): Currently living with daughter who has housing restriction. Refer to [facility] to help with housing applications. Memory impairment [...] for transportation, needs to go with a biofuels manager due to risk of falls. Continue ambulation [...] Discussed referral to [facility] program, he [...] next visit. FU with me next visi Semmes of foot 06/09/2017 Essential hypertension 06/09/2017 Assessment & Plan (07/03/2024 5:14 PM EST): Controlled. Compliant w/meds Continue amlodipine + lisinopril same dose Counseled re low salt diet/increase moderate physical activity. Check home BP BIW and prn CP/VEIIRA/PATRICIO Counseled to quit smoking FU in 6m [...] Encounters Date Type Department Care Team Description 01/30/[address] [address] Hanna Marcelino MD Chart Prep 01/23/[address] [address] Hanna Marcelino MD Letter for School/Work 01/23/2025 Travel 01/22/2025 Patient Outreach [address] [phone] Hanna Marcelino MD Pre-visit Planning ((Unable to reach for PVP screening, LVM) to be completed in office ) 12/18/[address] [address] Hanna Marcelino MD Appointment Request 12/18/2024 Telephone [facility] [address], [place] [phone] Hanna Marcelino MD 12/15/2024 12:00 PM EDT Office Visit [address] [phone] Varsha Robb DO Chronic pain of right knee (Primary Dx) 12/15/2024 Travel 12/13/[address] [address] Hanna Marcelino MD Nurse Triage 12/07/[address] [address] Hanna Marcelino MD 11/29/2024 10:15 AM EDT Office Visit [address] [address] Maggie Drew FNP Dermatitis (Primary Dx); Seborrheic dermatitis; Allergic conjunctivitis of both eyes 11/29/[address] [address] Maggie Drew FNP copay 11/29/2024 Travel 11/28/[address] [address] Hanna Marcelino MD Nurse Triage 11/15/[address] [address] Hanna Marcelino MD from Last 3 Months Immunizations Immunization Administration [...] Sign Reading Time Taken Comments Blood Pressure 132/68 01/23/2025 1:25 PM EDT Pulse 85 01/23/2025 1:25 PM EDT Temperature 36 C (96.8 F) 12/15/2024 12:06 PM EDT Respiratory Rate 20 12/15/2024 12:0 [...] Care Team (Late st Contact Info) Description 01/31/2025 10:15 AM EDT Office Visit [facility] [address] [place] [address] Hanna Marcelino MD [address] [place] [address] Health Maintenance Due Date Last Done Comments CT Colonography 1950 FIT DNA/Cologuard 1950 FIT 1950 FOBT 1950 Sigmoidoscopy 1950 Alcohol/Substance Use Screening 1962 Hepatitis C Screening 1968 Depression Screening 03/12/2024 03/12/2023, 03/12/20 23 COVID-19 Vaccine ( season) 2024 04/27/2024, 05/13/2023, 07/12/2021, Additional history exists SDOH Screening 12/22/2024 12/23/2023 Influenza Vaccine (#1) 2025 , 05/13/2023, 07/12/2021, Additional history exists Tobacco Screening 01/25/2026 01/25/2025 Colonoscopy 09/18/2027 09/17/2017 Colorectal Cancer Screening 09/18/2027 DTaP/Tdap/Td Vaccines (2 - Td or Tdap) 04/10/2029 04/10/2019 Lipid Panel 07/03/2029 07/03/2024, 09/0 02/2023, 03/12/2023 Zoster Vaccines Completed 01/17/2021, 02/06/2020 RSV Patients and Patients Aged 60 years [...] Procedure Name Priority Date/Time Associated Diagnosis Comments XR KNEE 4+ VIEWS RIGHT Routine 12/15/2024 12:20 PM EDT Chronic pain of right knee LIPID PANEL, STANDARD Routine 07/03/2024 3:18 PM EST Chronic gout of left hand, unspecified cause HM COLONOSCOPY Routine 09/17/2017 from Last 3 Months or Most Recently Relevant to Health Maintenance Results * XR Knee 4+ Views Right (12/15/2024 12:20 PM EDT) Anatomical Region Laterality Modality Lower Extremities, Knee Right Radiogra phic Imaging 12/15/2024 12:2 0 PM EDT Narrative 12/15/2024 1:35 [place] [address] XRay Report Signed Patient: Jose Raul Ramon MR#: [id number] : 1950 Acct:[id number] Age/Sex: 74 / M ADM Date: 12/15/24 Loc: .[facility] Attending Dr: Varsha Robb DO Ordering Physician: Varsha Robb DO Date of Service: 12/15/24 Procedure(s): XR knee RT 4V Accession Number(s): [id number] cc: Varsha Robb DO EXAMINATION: XR KNEE, RIGHT CLINICAL INFORMATION: worsening knee pain and swelling COMPARISON: None available. TECHNIQUE: AP, lateral oblique views of the right knee. FINDINGS: No acute cortical disruption or malalignment. Joint space narrowing involving mostly the medial compartment. Suprapatellar bursa joint effusion, small to moderate volume. No lytic or blastic lesions.. Vascular calcifications. XR/XR knee RT 4V IMPRESSION: Medial compartment osteoarthrosis. Suprapatellar bursa joint effusion, small to moderate volume. Electronically signed by: Kevin Barrera MD 12/15/2024 01:32 PM EDT RP Dictated By: Kevin Hogue MD Signed By: <Electronically signed by Kevin Alonso MD in OV> 12/15/24 1332 DD/ 1220 TD/TT: 12/15/24 1325 Rubber Mill Operator: Procedure Note Donotuseinterpreter, Image - 12/15/[address] [address] XRay Report Signed Patient: Lauryn Ramon#: [id number] : 1950Acct:[id number] Age/Sex: 74 / MADM Date: 12/15/24 [facility]: Varsha Robb DO Ordering Physician: Varsha Robb DO Date of Service: 12/15/24 Procedure(s): XR knee RT 4V Accession Number(s): [id number] cc: Varsha Robb DO EXAMINATION: XR KNEE, RIGHT CLINICAL INFORMATION: worsening knee pain and swelling COMPARISON: None available. TECHNIQUE: AP, lateral oblique views of the right knee. FINDINGS: No acute cortical disruption or malalignment. Joint space narrowing involving mostly the medial compartment. Suprapatellar bursa joint effusion, small to moderate volume. No lytic or blastic lesions.. Vascular calcifications. XR/XR knee RT 4V IMPRESSION: Medial compartment osteoarthrosis. Suprapatellar bursa joint effusion, small to moderate volume. Electronically signed by: Kevin Barrera MD 12/15/2024 01:32 PM EDT RP Dictated By: Kevin Hogue MD Signed By: <Electronically signed by Kevin Alonso MDin OV> 12/15/24 1332 DD/ 1220 TD/TT: 12/15/24 1325 Rubber Mill Operator: Varsha Clarisse DO IMG XR PROCEDURES Final Resu lt * (ABNORMAL) Lipid Panel, Standard (07/03/2024 3:18 PM EST) Triglycerides 189(H) <150 mg/dL [facility] Comment:Desirable Triglyceri de: less than 150 mg/dLBorderline High Triglyceride 150-199 mg/dLHigh Triglyceride: 200-499 mg/dLVery High Triglyceride: greater than or equal to 5OO mg/dL Cholesterol 171 <200 mg/dL [facility] Comment:Desirable Cholestero l: less than 200 mg/dLBorderline High Cholesterol: 200-239 mg/dLHigh Cholesterol: greater than 239 mg/dL LDL Cholesterol Calculated 100(H) <100 mg/dL [facility] Comment:Desirable LDL: less than 100 mg/dLNear Optimal/Above Optimal LDL: 110- 129 mg/dLBorderline High LDL: 130-159 mg/dLHigh LDL: 160-189 mg/dLVery High LDL: greater than or equal to 190 mg/dL HDL Cholesterol 34(L) >40 mg/dL [facility] Comment:Desirable HDL: great er than 40 mg/dL Note: This HDL assay may give artificially low results in patients with liver disease. 07/03/2024 3:18 PM EST 07/03/2024 4:13 PM EST Hanna Marcelino MD LAB BLOOD ORDERABLES Fin al Result Performing Organization Address City/[facility]/ZIP Co de Phone Number [facility] [address] [place] [phone] * Hm Colonoscopy (09/17/2017) Colonoscopy Normal Normal [facility] Comment:hyperplastic polyp 09/17/2017 us Hanna Marcelino MD HEALTH MAINTENANCE Final Result Performing Organization Address City/[facility]/ZIP Co de Phone Number [facility] [address] [place] [phone] from Last 3 Months or Most Recently Relevant to Health Maintenance Insurance * Guarantor: Jose Raul Ramon Account Type Relation to Patient Date of Phone Billing Address Personal/Family Self [address] Care Teams Cell Manager Relationship Specialty Start Date End Date Hanna Marcelino MD [address] [place] [phone] PCP - General Family Medicine 07/05/18
[2025-01-31 12:02] LABS: Alanine Aminotransferase 20 U/L (0-40); Albumin Level 4.7 g/dL (3.5-5.0); Alkaline Phosphatase 69 U/L (39-117); Anion Gap 13 (12-20); Aspartate Amino Transferase 28 U/L (5-37); Blood Urea Nitrogen 27 mg/dL (9-16); Calcium 8.8 mg/dL (8.4-10.2); Carbon Dioxide 25 mmol/L (22-29); Chloride 109 mmol/L (96-108); Cholesterol 104 mg/dL (<200); Estimated Glomerular Filt Rate 43; HDL Cholesterol 32 mg/dL (>40); Potassium 4.2 mmol/L (3.3-5.1); Sodium 143 mmol/L (135-145); Total Protein 7.2 g/dL (6.5-8.0); Triglycerides 127 mg/dL (<150)
[2025-01-31 14:03] LABS: Reflex LDLD? No
== END 2025-01-31 09:17 | disposition home or self-care (01) ==
LOC: HO.HHCL 09:16
PROVIDERS: PCP Internal Medicine; Visit Provider Internal Medicine
DX: I10 Essential (primary) hypertension (principal); E78.2 Mixed hyperlipidemia
CPT/HCPCS: 36415; 80053; 80061

== ENCOUNTER 2025-02-14 13:04 | Outpatient (AMB) | payer MEDICARE, SELFPAY ==
--- NOTE | 2025-02-14 13:34 | A.OFFVIS_ITS ---
Intake Visit Reasons: Follow Up Allergies No Known Allergies (No Known Allergies*) Allergy (Verified 12/18/23 13:17) Medication List - Last Reconciled 02/14/25 by Angelica Haque MD allopurinol mg PO amlodipine 5 mg PO DAILY atorvastatin mg PO fenofibrate nanocrystallized 145 mg PO QAM folic acid 0.4 mg PO QAM levetiracetam (Keppra) 500 mg PO BID lisinopril 20 mg PO DAILY thiamine HCl (vitamin B1) 100 mg PO QAM HPI Comments Details: This is 74-year-old man who is here with his daughter with whom he has been living for the last 8 months.? About 5 or 6 years ago, during the early part , he had been drunk and fell in the backyard hitting his head on some rocks and was found by his son.? He was admitted to the hospital with some internal bleeding in his head.? The details are unclear.? According to the daughter, he?has never been the same. He has been??forgetful and very anxious.? He doesn't sleep well.? Sometimes he keeps repeating the same word over and over and over again.? At some point, he apparently developed seizures, which according to the daughter, only started after the head trauma.? He has been on Keppra 1000 mg a day with no seizures in the last 2 years.? There is no report of any previous seizures.? His short-term memory is impaired.? There's been a change in his personality.? Most of the days he is either smoking outside on watching TV.? He himself feels that he is fine.? He used to drink heavily but ever since he moved in with his daughter, 8 months ago, he has not been drinking. He has a history of hypertension, COPD, hyperlipidemia and possible TBI 5 years ago with secondary seizures. [facility] Medical History (Updated 02/14/25 @ 13:47 by Angelica Haque MD) Alcohol abuse Seizure disorder MCI (mild cognitive impairment) Surgical History History of tonsillectomy Social History Patient Tobacco Use Status: Current everyday Tobacco user Cigarettes Per Day: 5 Review of Systems Const Details: Sleep Difficulty getting to sleep?admits.?Difficulty maintaining sleep?denies?.?Urge to move legs?denies.?Teeth grinding?admits.?Shouting or Kicking during sleep ?denies.?Abnormal behavior during sleep?denies.?Excessive sleep?denies.?Snoring ?denies.?Daytime sleepiness?denies. ? General/Constitutional Change in appetite?denies.?Chills?denies.?Fatigue?denies.?Fever?denies.?Weight gain?denies.?Weight loss?denies. ? Ophthalmologic Blurred vision?denies.?Diminished visual acuity?denies. ? ENT Stuffiness?denies.?Decreased hearing?denies.?Dry mouth?denies.?Ear pain ?denies.?Nosebleed?denies.?Ringing in the ears?denies.?Sinus pain?denies.?Sore throat?denies.?Swollen glands?denies. ? Endocrine Cold intolerance?denies.?Excessive thirst?denies.?Frequent urination?denies.? Heat intolerance?denies. ? Respiratory Shortness of breath?denies.?Chest pain?denies.?Cough?denies. ? Breast Breast lump?denies.?Nipple discharge?denies. ? Cardiovascular Chest pain at rest?denies.?Chest pain with exertion?denies.?Claudication ?denies.?Dizziness?denies.?Fluid accumulation in the legs?denies.?Irregular heartbeat?denies.?Palpitations?denies. ? Gastrointestinal Abdominal pain?denies.?Constipation?denies.?Diarrhea?denies.?Difficulty swallowing?denies.?Heartburn?denies.?Nausea?denies.?Rectal bleeding?denies. ? Hematology Easy bruising?denies.?Prolonged bleeding?denies. ? Genitourinary Frequent urination?denies.?Urgency?denies.?Incontinence?denies.?Erectile Dysfunction?denies. ? Musculoskeletal Neck pain?denies.?Back pain?denies.?Muscle aches?denies.?Painful joints ?denies.?Sciatica?denies.?Weakness?denies. ? Podiatric Difficulty walking?denies.?Foot numbness?denies. ? Neurologic Difficulty swallowing?denies.?Balance difficulty?admits.?Coordination?normal.? Difficulty speaking?denies.?Dizziness?denies.?Fainting?denies.?Gait abnormality ?denies.?Headache?denies.?Loss of strength?denies.?Loss of use of extremity ?denies.?Low back pain?denies.?Memory loss?admits.?Seizures?admits.?Tics ?denies.?Tingling/Numbness?denies.?Transient loss of vision?denies.?Tremor ?denies. ? Psychiatric Anxiety?admits.?Auditory/visual hallucinations?denies.?Delusions?denies.? Depressed mood?admits.?Stressors?admits.?Substance abuse?denies.?Suicidal thoughts?denies. Physical Exam Neuro Other: Neurological Abnormal neurological findings:??none.? Mental Status:?alert and oriented X 3,?Normal attention, orientation, memory and affect.? Cranial Nerves:?Pupils are equal, round and reactive to light. Fundoscopy shows normal disc bilaterally. External occular muscles are intact. Visual lagunas are full, no ptosis. Face is symmetrical, no facial weakness or droop. Facial sensations are normal. Tongue protrudes in midline. Palate elevates symmetrically. Shoulder shrugging is normal..? Motor Examination:?Normal muscle tone, bulk and strength,?No atrophy or fasciculations,?No drift of the extended upper extremities,?Deep tendon reflexes are 2+?,?Plantars are flexor?.? Motor Strength:?Proximal Muscles (out of 5):5Distal Muscles (out of 5):5Neck Flexors (out of 5):5Neck Extensors (out of 5):5Deltoid (out of 5):5Biceps (out of 5):5Triceps (out of 5):5Serratus Anterior (out of 5):5Wrist Extensors (out of 5):5APB (out of 5):5Finger Spread (out of 5):5Ileopsoas (out of 5):5Quadriceps (out of 5):5Hamstrings (out of 5):5Tibialis Anterior (out of 5):5Peronei (out of 5):5EDB (out of 5):5Gastrocnemius (out of 5):5Straight Leg Raising:?90 degrees.? Sensory Exam:?Normal light touch, temperature, pinprick, vibration and joint- position sensations?,?Rhomberg sign is absent.? Coordination:?no ataxia,?no titubation,?nrwsud-qq-vpqw, yfmm-fwra-qpwa test and rapid alternating movements were normal.? Gait Exam:?Within normal limits with? a cane.? Cerebellar Signs:?Bbylnq-ed-laks and hlgc-mq-ilon is normal,?no dysdiadochokinesia?.? Extrapyramidal System:?No tremor, rigidity with normal facial expressions,?No bradykinesia, no bradyphrenia. Normal arm swing and posture. No propulsion or retropulsion.? Speech:?Normal,?no dysphasia or dysarthria..? Mini Mental Status Exam Level of Consciousness:?Alert.? Orientation:?Knows correct year, month, date, day and season,?Knows correct city, county and state. Knows correct location and floor.? Registration:?Able to register 3 objects.? Attention:?Serial 7's performed accurately.? Recall:?Able to recall 3 out of 3 objects.? Language:?Normal spontaneous speech, fluency, repetition,naming, comprehension, reading and writing.? Total Score:?30/30.? General Examination GENERAL APPEARANCE:?normal,?in no acute distress.? HEAD:?normocephalic,?atraumatic.? EYES:?sclera non-icteric,?conjunctiva clear.? EARS:?auditory canal clear,?tympanic membrane intact, clear.? NOSE:?no lesions.? ORAL CAVITY:?gums normal,?mucosa moist,?no lesions.? THROAT:?clear.? NECK/THYROID:?no cervical lymphadenopathy,?thyroid normal,?neck supple, full range of motion,?no carotid bruit.? SKIN:?no rashes,?no significant birthmarks.? HEART:?S1, S2 normal,?no murmurs.? LUNGS:?clear anteriorly and posteriorly.? CHEST:?no gross rib deformity,?clear to auscultation.? BACK:?normal exam of spine.? EXTREMITIES:?no edema.? PERIPHERAL PULSES:?normal.? PSYCH:?alert, oriented,?cognitive function intact,?cooperative with exam.? Results Reviewed Results Reviewed: 12/13/2024 MRI of the brain: Large areas of encephalomalacia surrounded by gliosis involving both anterior frontal lobes with areas of susceptibility suggestive of old hemosiderin deposition. This is the sequelae of old traumatic brain injury. There is also generalized volume loss and mild ventriculomegaly. 12/11/2024 EEG: Waking background activity consists of a 7-8 hertz moderate voltage alpha frequency intermixed with some theta and low-voltage fast frequencies anteriorly. Photic stimulation and hyperventilation are without activation. Impression: Mildly slow background activity consistent with a mild diffuse encephalopathic process. No epileptiform discharges are seen Assessment & Plan Assessment & Plan (1) TBI (traumatic brain injury): Code(s): S06.9XAA - Unspecified intracranial injury with loss of consciousness status unknown, initial encounter Category: Medical (2) Seizure disorder: Code(s): G40.909 - Epilepsy, unspecified, not intractable, without status epilepticus Category: Medical Plan Reduce Keppra gradually with goal of getting him off it next visit if no Sz recurrence Medications: Changed From levetiracetam (Keppra) 500 mg PO BID 60 tabs 0RF To levetiracetam (Keppra) 250 mg (1/2 x 500 mg) PO BID 60 tabs 5RF Coding Level of Care Code Est Pt Level 4 (96377) Diagnoses TBI (traumatic brain injury) S06.9XAA Seizure disorder G40.909
--- OUTSIDE RECORDS SUMMARY | 2025-02-14 13:37 | XMS_ITS | Encounter Summary ---
Author Organization [employer] Address [address] [facility] [address] [place] [address] Care Team Providers Care Cottonseed Meat Presser Name Role Phone Hanna Marcelino MD Primary Care Provider + Reason for Visit * Reason Comments Care Coordination CHW outreach for SDO H PT-1 - LVM Encounter Details Date Type Department Care Team (Latest Contact Info) Description 02/09/2025 Patient Outreach [facility] [address] [place] [address] Hanna Marcelino MD [address] [place] [address] Care Coordination (CHW outreach for SDOH PT-1 - LVM ) Social History Tobacco Use Types Packs/Day Years Used Date Smoking Tobacco: Every Day Cigarettes Passive Smoke Exposure: Current Smokeless Tobacco: Never Alcohol Use Standard Drinks/Week Comments Yes 1 (1 standard drink = 0.6 oz pur e alcohol) almost everyday Depression Answer Date Recorded Patient Health Questionnaire-9 Score 24 01/31/2025 Patient Health Questionnaire-9 Score 24 01/31/2025 Last PHQ-9: Questionnaire Data Not on file 0 01/31/2025 Housing Stability Answer Date Recorded What is your housing situation today? I have carol hoa 01/31/[address] you li ve. Do you have problems with any of the following? None of the above 01/31/2025 Food Insecurity Answer Date Recorded Within the past 12 months, y ou worried that your food would run out before you got money to buy more: Never True 01/31/2025 Within the past 12 months,th e food you bought just didn't last and you didn't have enough money to get more: Never True Transportation Answer Date Recorded In the past 12 months, has l ack of transportation kept you from medical appts, meetings, work or from getting things needed for daily living? No 01/31/2025 Utilities Answer Date Recorded In the past 12 months, has t he electric, gas, oil or water company threatened to shut off services in your home? No 01/31/2025 Depression Answer Date Recorded Patient Health Questionnaire-2 Score 6 01/31/2025 Internet Access Answer Date Recorded Internet Access Q1 Yes 01/31/2025 Internet Access Q2 Not on file 01/31/2025 Sex and Gender Information Value Date Recorded Sex Assigned at Male 05/04/2022 10:32 AM EDT Legal Sex Male 10:32 AM EDT Gender Identity Male 05/04/2022 10:32 AM EDT Sexual Orientation Straight 05/04/2022 10 :32 AM EDT documented as of this encounter Progress Notes * Lebron Villalba - 02/09/2025 1:58 PM EDT CHW Lebron Villalba, placed outbound call to patient for assistance with SDOH as a referral was placed by the provider. Patient had screened positive for the following SDOH housing insecurities. Patient did not answer at this time. Patient's name and were not confirmed. CHW left detailed message and provided contact information requesting return call for more assistance. documented in this encounter Plan of Treatment Not on file documented as of this encounter Visit Diagnoses Not on filedocumented in this encounter Additional Health Concerns Assessment Noted Time PHQ-9 Depression Total Score: 24 025 10:23 AM EDT documented as of this encounter Care Teams Cottonseed Meat Presser Relationship Specialty Start Date End Date Hanna Marcelino MD [address] [place] [phone] PCP - General Family Medicine 07/05/18 documented as of this encounter
== END 2025-02-14 13:50 | disposition home or self-care (01) ==
LOC: HO.HSM 13:05
PROVIDERS: PCP Internal Medicine; Referring Provider Internal Medicine; Visit Provider Psychiatry & Neurology Neurology
DX: S06.9XAA Unspecified intracranial injury with loss of consciousness status unknown, initial encounter (principal); G40.909 Epilepsy, unspecified, not intractable, without status epilepticus
CPT/HCPCS: 99214

== ENCOUNTER → 2025-02-14 13:04 | Outpatient (BNVA) | payer MEDICARE, SELFPAY | PROVIDERS: PCP Internal Medicine; Referring Provider Internal Medicine; Visit Provider Psychiatry & Neurology Neurology | DX: S06.9XAA Unspecified intracranial injury with loss of consciousness status unknown, initial encounter (principal); G40.909 Epilepsy, unspecified, not intractable, without status epilepticus | CPT/HCPCS: 99212 ==

== ENCOUNTER 2025-02-22 10:52 | Outpatient (REF) | payer MEDICARE, SELFPAY ==
--- OUTSIDE RECORDS SUMMARY | 2025-02-22 12:24 | XMS_ITS | Encounter Summary ---
Author Organization [employer] Address [address] [facility] [address] [address] [place] [address] Care Team Providers Care Hemotherapist Name Role Phone Hanna Marcelino MD Primary Care Provider + Reason for Visit * Reason Onset Date Comments pt1 02/09/2025 Encounter Details Date Type Department Care Team ([facility] Contact Info) Description 02/09/2025 Telephone [facility] [address] [place], [place] [phone] Hanna Marcelino MD [address] [place], [place] [phone] pt1 Social History Tobacco Use Types Packs/Day Years [...] housing situation today? I have carol camara 01/31/[address] you li [...] AM EDT documented as of this encounter Miscellaneous Notes * Telephone Encounter - Wilmer Horton - 02/09/2025 1:30 PM EDT Patient calling requesting PT1 Home Address verified: Y/N: Yes Provider name or facility name: [facility] Escort needed: Y/N: Yes Do you have a wheelchair: Y/N: No Visits: (2x month) documented in this encounter Plan of Treatment Not on file documented as of this encounter Visit Diagnoses Not on filedocumented in this encounter Additional Health Concerns Assessment Noted Time PHQ-9 Depression Total Score: 24 025 10:23 AM EDT documented as of this encounter Care Teams Hemotherapist Relationship Specialty Start Date End Date Hanna Marcelino MD [address] [place] [phone] PCP - General Family Medicine 07/05/18 documented as of this encounter
[2025-02-22 13:38] LABS: Blood Urea Nitrogen 28 mg/dL (9-16); Estimated Glomerular Filt Rate 49
== END 2025-02-22 10:53 | disposition home or self-care (01) ==
LOC: HO.HHCL 10:52
PROVIDERS: PCP Internal Medicine; Visit Provider Internal Medicine
DX: N18.31 Chronic kidney disease, stage 3a (principal)
CPT/HCPCS: 36415; 82565; 84520

== ENCOUNTER 2025-03-08 10:36 | Outpatient (AMB) | payer MEDICARE, SELFPAY ==
--- NOTE | 2025-03-08 10:40 | A.OFFVIS_ITS ---
Intake Visit Reasons: New Pt - Right Knee OA Intake Note: Jose Raul is a 74 year old male who presents today as a New Patient with complaints of Right Knee Pain. Patient reports ongoing right knee pain and weakness for quite some time now, but worsening within the last 3 months. Ambulates with a cane. He is taking Tylenol with mild relief. History of left knee gout, traumatic brain injury, seizures and DVT. Allergies No Known Allergies (No Known Allergies*) Allergy (Verified 03/08/25 10:42) HPI HPI New Pt - Right Knee OA: Details: Jose Raul is a 74 year old male who presents today as a New Patient with complaints of Right Knee Pain. Patient reports ongoing right knee pain and weakness for quite some time now, but worsening within the last 3 months. Ambulates with a cane. He is taking Tylenol with mild relief. History of left knee gout, traumatic brain injury, seizures and DVT. [facility] Medical History (Updated 03/08/25 @ 15:35 by Reginaldo Pierson MD) Alcohol abuse Seizure disorder MCI (mild cognitive impairment) Surgical History History of tonsillectomy Social History Patient Tobacco Use Status: Current everyday Tobacco user Cigarettes Per Day: 5 Physical Exam Extrem Other: Right knee with full range of motion and no effusion. Stable to varus and valgus stress. Negative Matthew's. Tenderness to palpation medial tibial plateau. Office Procedures Joint Inj/Aspir; Non-Pain Clin Joint Injection/Drain Details: Injected 1 mL of Decadron and 3 mL 1% lidocaine and 3 mL of 0.25% Marcaine. Site was prepped using aseptic technique. Patient tolerated the procedure well. Shoulders, Hips, Knees, Knee Large Joint Injection 72202: Right Knee Coding Procedure code (CPT) selection complete Results Reviewed Results Reviewed: I personally reviewed relevant radiographs. Mild right knee osteoarthritis Assessment & Plan Assessment & Plan (1) Arthritis of right knee: Code(s): M17.11 - Unilateral primary osteoarthritis, right knee Category: Medical Plan: This is a 74-year-old gentleman with right knee osteoarthritis. Mild on x-ray in his exam is benign. I discussed treatment options. At this point I injected his right knee. He may follow up in 3-4 months or as needed. Coding Level of Care Code New Pt Level 3 (35514) Diagnoses Arthritis of right knee M17.11 CPT Codes Shoulders, Hips, Knees, - Knee Large Joint Injection : Right Knee ([id number])
--- OUTSIDE RECORDS SUMMARY | 2025-03-08 12:06 | XMS_ITS | Clinical Summary ---
Author Organization [employer] Address [address] [place] [address] Care Team Providers Care Chairman & Ceo Name Role Phone Hanna Marcelino MD Primary Care Provider + Allergies No known active allergies Medications * This document contains information received from the source organization and may not represent a complete record from that organization. amLODIPine (Norvasc) 5 MG tabletIndications: Essential hypertension Take 1 tablet (5 mg) by mouth Once per day. 90 tablet 3 4 025 Active fenofibrate (Tricor) 145 MG tabletIndications: Hypertriglyceridem ia Take 1 tablet (145 mg) by mouth Once per day. 90 tablet 4 025 Active folic acid (Folvite) 400 MCG tabletIndications: Alcoholism (CMS/HCC) Take 1 tablet (400 mcg) by mouth Once per day. 90 tablet 3 4 025 Active allopurinol (Zyloprim) 300 MG tablet Take 1 tablet (300 mg) by mouth Once per day. 30 tablet 4 025 Active Spacer/Aero-Holdin g Chambers (Compact Space Chamber) device USE DIRECTED 1 each 4 Active thiamine (Vitamin B-1) 100 MG tabletIndications: Alcoholism (CMS/HCC) TAKE 1 TABLET BY MOUTH EVERY MORNING 90 tablet 1 5 Active atorvastatin (Lipitor) 40 MG tablet Take 1 tablet (40 mg) by mouth at bedtime. 30 tablet 11 5 026 Active Ventolin HFA 108 (90 Base) MCG/ACT inhaler INHALE 2 PUFFS BY MOUTH EVERY 6 HOURS NEEDED FOR WHEEZING 18 g 2 5 Active levETIRAcetam (Keppra) 500 MG tablet TAKE 2 TABLETS BY MOUTH TWICE DAILY IN THE MORNING AND AT BEDTIME 120 tablet 3 5 Active Ketotifen Fumarate 0.035 % solutionIndication s:Allergic conjunctivitis of both eyes Administer 1 drop into affected eye(s) if needed in the morning and at bedtime (redness or itching of eyes). 10 mL 3 5 Active ketoconazole (NIZOral) 2 % shampooIndications :Seborrheic dermatitis Apply topically 2 (two) times a week. Apply to wet hair, lather, and rinse thoroughly 120 mL 1 5 Active lisinopril 20 MG tablet TAKE 1 TABLET BY MOUTH EVERY MORNING 90 tablet 2 5 Active acetaminophen (Tylenol 8 Hour) 650 MG ER tablet Take 1 tablet (650 mg) by mouth every 8 (eight) hours if needed for mild pain. Do not crush, chew, or split. 50 tablet 1 5 026 Active Diclofenac Sodium 1 % gel Apply 2 g topically if needed in the morning, at noon, in the evening, and at bedtime (pain). 150 g 3 5 Active Mometasone Furoate (Asmanex HFA) 200 MCG/ACT aerosol Inhale 1 Act (200 mcg) Once per day. 13 g 11 5 Active traZODone (Desyrel) 50 MG tablet Take 1 tablet (50 mg) by mouth at bedtime. 30 tablet 3 5 Active Active Problems Problem Noted Date Diagnosed Date Seizure disorder 01/31/2025 Assessment & Plan (01/31/2025 10:35 AM EDT): Doing well on Keppra, congratulated him on sobriety. Continue Keppra same dose and follow-up LFTs Recurrent major depressive disorder, in partial remission 01/31/2025 Assessment & Plan (01/31/2025 12:29 PM EDT): PHQ-9 is 24, patient is sober for 6+ months after many years of continuous alcohol use. We discussed about coping mechanisms with anxiety and depression, he is able to reach out for safety to his daughters and 2 hours. He has had several losses within the past year, he agreed to referral Start Trazodone QHS Mixed hyperlipidemia 09/29/2024 Assessment & Plan (01/31/2025 10:28 AM EDT): Started on atorvastatin and is on fibrate as well. Will follow-up LFTs and lipid profile done today and adjust medication accordingly. Assessment & Plan (09/29/2024 1:55 PM EDT): [...] 30.9 in adult 04/28/2024 Assessment & Plan (01/31/2025 10:32 AM EDT): Discussed re weight reduction options including exercise, life style modifications, diet, he is lost few pounds in the past 3 months. Recommended to decrease soda and sugary beverage consumption, increase protein intake with meals (at least 1 portion of protein with each meal) to assist with satiety, increase dietary fiber Recommended at least 150 min/week of moderate intensity exercise. Assessment & Plan (04/28/2024 1:34 PM EDT): [...] them they can also reach out to [employer] for technical/IT assistance. I told them to reach out to Medicare/[employer] nurse healthcare manager. I'll have one of our CM reach to to them prior to next appt. Assessment & Plan (03/17/2024 2:44 PM EDT): Currently living with daughter who has housing restriction. Refer to [facility] to help with housing applications. Memory [...] 03/17/2024 Pulmonary emphysema 03/17/2024 Assessment & Plan (01/31/2025 10:32 AM EDT): Doing well on inhaled steroids, will switch to Asmanex due to formulary change, continue ProAir as needed Counseled to cut down smoking, he will be referred to to help with anxiety and will continue to work on smoking cessation. Follow-up with me in 3 to 4 months Assessment & Plan (07/03/2024 2:41 PM EST): [...] replacement therapy Prescription for nicotine gum PRN Left hip pain 03/12/2023 Assessment & Plan [...] for transportation, needs to go with a groundman/lineman due to risk of falls. Continue ambulation [...] degenerative conditions due to either alcohol or jail uncontrolled hTN Acute deep vein thrombosis of lower limb 022 Alcoholism 06/13/2022 Assessment & Plan (01/31/2025 10:31 AM EDT): Sober for 6+ months now, feeling well but has some MDD symptoms, agreed for referral We discussed about reaching out to support groups in the community including AA and our CRS groups, he declined referral to AUD program. I congratulated him for sobriety and will follow-up with him in 4 months Assessment & Plan (09/29/2024 1:53 PM EDT): [...] Discussed referral to [facility], he [...] injury 06/13/2022 Urge incontinence of urine 06/13/2022 Tubular adenoma of colon 07/18/2019 IFG (impaired fasting glucose) 07/21/2017 Assessment & Plan (03/17/2024 2:39 PM EDT): I have discussed with patient regarding increasing physicial activity and decrease calorie intake I'll check FBS with next set of labs. To check RBS at next visit. FU with me next visi [place] of foot 06/09/2017 Essential hypertension 06/09/2017 Assessment [...] Problem Noted Date Diagnosed Date Resolved Date Subacute cough 05/13/2023 01/31/2025 Assessment & Plan (05/13/2023 1:30 PM EST): Most likely COPD/smokers cough Order PFTs Cont Flovent + albuterol Counseled to quit smoking Wheezing 06/13/2022 01/31/2025 Hyponatremia 07/21/2017 07/03/2024 Encounters * This document contains information received from the source organization and may not represent a complete record from that organization. Date Type Department Care Team Description 03/08/2025 Refill [facility] [address] [place] [phone] Hanna Marcelino MD Essential hypertension; Hypertriglyceridemia; Alcoholism (CMS/HCC) 03/07/2025 Refill [facility] [address] [place] [phone] Hanna Marcelino MD 02/09/2025 Patient Outreach [address] [address] Hanna Marcelino MD Care Coordination (CHW outreach for SDOH PT-1 - LVM ) 02/09/[address] [address] Hanna Marcelino MD pt1 01/31/2025 10:15 AM EDT Office Visit [address] [address] Hanna Marcelino MD Mixed hyperlipidemia (Primary Dx); Recurrent major depressive disorder, in partial remission (CMS/HCC); Alcoholism (CMS/HCC); Class 1 obesity due to excess calories with serious comorbidity and body mass index (BMI) of 30.0 to 30.9 in adult; Seizure disorder (CMS/HCC); Pulmonary emphysema, unspecified emphysema type (CMS/HCC); Dietary counseling; Exercise counseling 01/31/2025 Results Follow-Up [facility] [address] [place] [address] [place] [address] Hanna Marcelino MD Comprehensive Metabolic Panel, Lipid Panel with Reflex to Direct LDL 01/31/2025 Travel 01/30/[address] [address] Hanna Marcelino MD Chart Prep 01/23/[address] [address] Hanna Marcelino MD Letter for School/Work 01/23/2025 Travel 01/22/2025 Patient Outreach [address] [address] Hanna Marcelino MD Pre-visit Planning ((Unable to reach for PVP screening, LVM) to be completed in office ) 12/18/[address] [address] Hanna Marcelino MD Appointment Request 12/18/2024 Telephone [facility] [address] [place], [place] [phone] Hanna Marcelino MD 12/15/2024 12:00 PM EDT Office Visit [address] [address] Varsha Robb DO Chronic pain of right knee (Primary Dx) 12/15/2024 Travel 12/13/[address] [address] Hanna Marcelino MD Nurse Triage 12/07/[address] [phone] Hanna Marcelino MD from Last 3 Months [...] Passive Smoke Exposure: Current Smokeless Tobacco: Never Tobacco Cessation:Ready to Q [...] Sign Reading Time Taken Comments Blood Pressure 130/62 01/31/2025 10:00 AM EDT Pulse 65 01/31/2025 10:00 AM EDT Temperature 36.1 C (97 F) 01/31/2025 10:00 AM EDT Respiratory Rate 20 01/31/2025 10:00 AM EDT Oxygen Saturation 97% 01/31/2025 10:00 AM EDT Inhaled Oxygen Concentration - - Weight 79.5 kg (175 lb 3.2 oz) 01/31/2025 10:00 AM EDT Height 162.6 cm (5' 4 ) 01/31/2025 10:00 AM EDT Body Mass Index 30.07 01/31/2025 10:00 AM EDT Plan of Treatment Health Maintenance Due Date Last Done Comments CT Colonography 1950 FIT DNA/Cologuard 1950 FIT 1950 FOBT 1950 Sigmoidoscopy 1950 Hepatitis C Screening 1968 COVID-19 Vaccine ( season) 2025 04/27/2024, 05/13/2023, 07/12/2021, Additional history exists Influenza Vaccine (#1) 2025 , 05/13/2023, 07/12/2021, Additional history exists Depression Monitoring 08/03/2025 01/31/2025, 025 Alcohol/Substance Use Screening 01/31/2026 01/31/2025 SDOH Screening 01/31/2026 01/31/2025 Tobacco Screening 01/31/2026 01/31/2025 Colonoscopy 09/18/2027 09/17/2017 Colorectal Cancer Screening 09/18/2027 DTaP/Tdap/Td Vaccines (2 - Td or Tdap) 04/10/2029 04/10/2019 Lipid Panel 01/31/2030 01/31/2025, 12, 03/12/2023, Additional history exists Zoster Vaccines Completed 01/17/2021, 02/06/2020 RSV Patients [...] Procedure Name Priority Date/Time Associated Diagnosis Comments CREATININE, SERUM Routine 02/22/2025 11: 00 AM EDT Stage 3a chronic kidney disease (CMS/HCC) UREA NITROGEN (BUN) Routine 02/22/2025 1 1:00 AM EDT Stage 3a chronic kidney disease (CMS/HCC) LIPID PANEL WITH REFLEX TO DIRECT LDL Routine 01/31/2025 9:20 AM EDT Mixed hyperlipidemia COMPREHENSIVE METABOLIC PANEL Routine 01/31/2025 9:20 AM EDT Essential hypertension Mixed hyperlipidemia XR KNEE 4+ VIEWS RIGHT Routine 12/15/2024 12:20 PM EDT Chronic pain of right knee HM COLONOSCOPY Routine 09/17/2017 from Last 3 Months or Most Recently Relevant to Health Maintenance Results * (ABNORMAL) Creatinine, Serum (02/22/2025 11:00 AM EDT) Creatinine, Serum 1.42(H) 0.5 - 1.4 mg/dL [facility] Estimated Glomerular Filt Rate 49 [facility] Comment:Chronic Kidney Disea se: Estimated GFR < 60 mL/min/1.28l1Hdlocn Kidney Disease: Estimated GFR < 15 mL/min/1.73m2 Blood Venous blood specimen / Unknown 02/22/2025 11:00 AM EDT 02/22/2025 12:56 PM EDT us Hanna Marcelino MD LAB BLOOD ORDERABLES Fin al Result Performing Organization Address [facility] Co de Phone Number [facility] [address] [place] [phone] * (ABNORMAL) BUN (Blood Urea Nitrogen) (02/22/2025 11:00 AM EDT) Urea Nitrogen (BUN) 28(H) 9 - 16 mg/dL [facility] Blood Venous blood specimen / Unknown 02/22/2025 11:00 AM EDT 02/22/2025 12:56 PM EDT us Hanna Marcelino MD LAB BLOOD ORDERABLES Fin al Result Performing Organization Address [facility] Co de Phone Number [facility] [address] [place] [phone] * (ABNORMAL) Lipid Panel with Reflex to Direct LDL (01/31/2025 9:20 AM EDT) Triglycerides 127 <150 mg/dL [facility] Comment:Desirable Triglyceri de: less than 150 mg/dLBorderline High Triglyceride 150-199 mg/dLHigh Triglyceride: 200-499 mg/dLVery High Triglyceride: greater than or equal to 5OO mg/dL Cholesterol 104 <200 mg/dL [facility] Comment:Desirable Cholestero l: less than 200 mg/dLBorderline High Cholesterol: 200-239 mg/dLHigh Cholesterol: greater than 239 mg/dL LDL Cholesterol Calculated 47 <100 mg/dL [facility] Comment:Desirable LDL: less than 100 mg/dLNear Optimal/Above Optimal LDL: 110- 129 mg/dLBorderline High LDL: 130-159 mg/dLHigh LDL: 160-189 mg/dLVery High LDL: greater than or equal to 190 mg/dL HDL Cholesterol 32(L) >40 mg/dL [facility] Comment:Desirable HDL: great er than 40 mg/dL Note: This HDL assay may give artificially low results in patients with liver disease. Blood 01/31/2025 9:20 AM EDT 01/31/2025 11:23 AM EDT us Hanna Marcelino MD LAB BLOOD ORDERABLES Fin al Result [facility] [address] [place] [phone] * (ABNORMAL) Comprehensive Metabolic Panel (01/31/2025 9:20 AM EDT) Sodium 143 135 - 145 mmol/L [facility] Potassium 4.2 3.3 - 5.1 mmol/L [facility] Chloride 109(H) 96 - 108 mmol/L [facility] Carbon Dioxide 25 22 - 29 mmol/L [facility] Anion Gap 13 12 - 20 [facility] Urea Nitrogen (BUN) 27(H) 9 - 16 mg/dL [facility] Creatinine, Serum 1.58(H) 0.5 - 1.4 mg/dL [facility] Estimated Glomerular Filt Rate 43 [facility] Comment:Chronic Kidney Disea se: Estimated GFR < 60 mL/min/1.35r3Ocbhoc Kidney Disease: Estimated GFR < 15 mL/min/1.73m2 Glucose 94 60 - 115 mg/dL [facility] Calcium 8.8 8.4 - 10.2 mg/dL [facility] Bilirubin, Total 0.4 0.0 - 1.0 mg/dL [facility] Aspartate Amino Transferase 28 5 - 37 U/L [facility] Alanine Aminotransferase 20 0 - 40 U/L [facility] Total Protein 7.2 6.5 - 8.0 g/dL [facility] Albumin Level 4.7 3.5 - 5.0 g/dL [facility] Alkaline Phosphatase 69 39 - 117 U/L [facility] Blood Venous blood specimen / Unknown 01/31/2025 9:20 AM EDT 01/31/2025 11:23 AM EDT us Hanna Marcelino MD LAB BLOOD ORDERABLES Fin al Result [facility] [address] [place] [phone] * XR Knee 4+ Views Right (12/15/2024 12:20 PM EDT) Anatomical Region Laterality Modality Lower Extremities, Knee Right Radiogra phic Imaging 12/15/2024 12:2 0 PM EDT Narrative 12/15/2024 1:35 PM EDT [address] [address] XRay Report Signed Patient: Jose Raul Ramon MR#: [id number] : 1950 Acct:[id number] Age/Sex: 74 / M ADM Date: 12/15/24 Loc: .HHCX Attending Dr: Varsha Robb DO Ordering Physician: Varsha Robb DO Date of Service: 12/15/24 Procedure(s): XR knee RT 4V Accession Number(s): [id number] cc: Varsha Robb DO EXAMINATION: XR KNEE, [...] Kevin Barrera MD 12/15/2024 01:32 PM EDT Dictated By: Kevin Hogue MD Signed By: <Electronically signed by Kevin Alonso MD in OV> 12/15/24 1332 DD/ 1220 TD/TT: 12/15/24 1325 Strategic Marketing Specialist: Procedure Note Donotuseinterpreter, Image - 12/15/2024 [facility] [address] [place] [address] XRay Report Signed Patient: Lauryn Ramon#: [id number] : 1950Acct:[id number] Age/Sex: 74 / MADM Date: 12/15/24 Loc: HO.HHCX Attending Dr: Varsha Robb DO Ordering Physician: Varsha Robb DO Date of Service: 12/15/24 Procedure(s): XR knee RT 4V Accession Number(s): [id number] cc: Vasrha Robb DO EXAMINATION: XR KNEE, RIGHT CLINICAL [...] Kevin Barrera MD 12/15/2024 01:32 PM EDT Dictated By: Kevin Hogue MD Signed By: <Electronically signed by Kevin Alonso MDin OV> 12/15/24 1332 DD/ 1220 TD/TT: 12/15/24 1325 Strategic Marketing Specialist: us Varsha Robb DO IMG XR PROCEDURES Final Resu lt * Hm Colonoscopy (09/17/2017) Colonoscopy Normal Normal [facility] Comment:hyperplastic polyp 09/17/2017 us Hanna Marcelino MD HEALTH MAINTENANCE Final Result [facility] [address] [place] [phone] from Last 3 Months or Most Recently Relevant to Health Maintenance Insurance [employer] PPO * Guarantor: Jose Raul Ramon Account Type Relation to Patient Date of Phone Billing Address Personal/Family Self [address] Care Teams Chairman & Ceo Relationship Specialty Start Date End Date Hanna Marcelino MD [address] [place] [phone] PCP - General Family Medicine 07/05/18
--- OUTSIDE RECORDS SUMMARY | 2025-03-08 12:06 | XMS_ITS | Encounter Summary ---
Author Organization [employer] Address [address] [facility] 7t [place] [address] Care Team Providers Care Bonbon Cream Warmer Name Role Phone Hanna Marcelino MD Primary Care Provider + Reason for Visit * Reason Onset Date Comments Appointment Request 09/18/2024 Encounter Details Date Type Department Care Team ([facility] Contact Info) Description 09/18/2024 Telephone [facility] [address] [place], [place] [phone] Hanna Marcelino MD [address] [place], [place] [phone] Appointment Request Social History Tobacco Use Types Packs/Day Years Used Date Smoking Tobacco: Every Day Cigarettes Smokeless Tobacco: Never Alcohol Use Standard Drinks/Week [...] encounter Miscellaneous Notes * Telephone Encounter - Crow Knight - 09/18/2024 11:12 AM EDT Tc from pt requesting to R/s Apt from 09/18/24. Contact daughter at [phone] documented in this encounter Plan of Treatment Not on file documented as of this encounter Visit Diagnoses Not on filedocumented in this encounter Care Teams Bonbon Cream Warmer Relationship Specialty Start Date End Date Hanna Marcelino MD [address] [place] [phone] PCP - General Family Medicine 07/05/18 documented as of this encounter
--- OUTSIDE RECORDS SUMMARY | 2025-03-08 12:06 | XMS_ITS | Encounter Summary ---
Author Organization [employer] Address [address] [place] [address] Care Team Providers Care Software Test Technician Name Role Phone Hanna Marcelino MD Primary Care Provider + Encounter Details Date Type Department Care Team ([facility] Contact Info) Description 12/18/2024 Telephone [facility] [address] [place], [place] [phone] Hanna Marcelino MD [address] [place], [place] [phone] Social History Tobacco Use Types Packs/Day Years Used Date Smoking Tobacco: Every Day Cigarettes Smokeless Tobacco: Never Alcohol Use Standard Drinks/Week Comments Yes 1 (1 standard drink = 0.6 oz pur e alcohol) almost everyday PHQ-2 Answer Date Recorded Patient Health Questionnaire-2 Score 0 03/12/2023 Housing Stability Answer Date Recorded What is your housing situation today? I have carol sing 04/20/[address] you li [...] AM EDT documented as of this encounter Plan of Treatment Not on file documented as of this encounter Visit Diagnoses Not on filedocumented in this encounter Care Teams Software Test Technician Relationship Specialty Start Date End Date Hanna Marcelino MD [address] [place] [phone] PCP - General Family Medicine 07/05/18 documented as of this encounter
--- OUTSIDE RECORDS SUMMARY | 2025-03-08 12:06 | XMS_ITS | Encounter Summary ---
Author Organization [employer] Address [address] [facility] [address] [place] [address] Care Team Providers Care Occupational Health Physiotherapist Name Role Phone Hanna Marcelino MD Primary Care Provider + Reason for Visit * Reason Onset Date Comments Appointment Request 07/10/2024 Encounter Details Date Type Department Care Team ([facility] Contact Info) Description 07/10/2024 Telephone [facility] [address] [place], [place] [phone] Hanna Marcelino MD [address] [place], [place] [phone] Appointment Request Social History Tobacco Use Types [...] encounter Miscellaneous Notes * Telephone Encounter - Genaroclive Charlton - 07/10/2024 10:28 AM EST Tc from Daughter requesting to reschedule medication management visit. Please contact daughter/pt at [phone]. documented in this encounter Plan of Treatment Not on file documented as of this encounter Visit Diagnoses Not on filedocumented in this encounter Care Teams Occupational Health Physiotherapist Relationship Specialty Start Date End Date Hanna Marcelino MD [address] [place] [phone] PCP - General Family Medicine 07/05/18 documented as of this encounter
--- OUTSIDE RECORDS SUMMARY | 2025-03-08 12:06 | XMS_ITS | Encounter Summary ---
Author Organization [employer] Address [address] [place] [address] Care Team Providers Care Manager Van Name Role Phone Hanna Marcelino MD Primary Care Provider + Reason for Visit * Reason Onset Date Comments Nurse Triage 12/13/2024 Encounter Details Date Type Department Care Team ([facility] Contact Info) Description 12/13/2024 Telephone [facility] MEDICINE [address] [place], [place] [phone] Hanna Marcelino MD [address] [place], [place] [phone] Nurse Triage Social History Tobacco Use Types Packs/Day Years [...] AM EDT documented as of this encounter Functional Status * Over the past 2 weeks, how often have you been bothered by any of the following problems? Question Answer Date of Assessment Author Patient Health Questionnaire-2 Score 6 01/04 10:23 AM EDT Rupali Sosa MA * Little interest or pleasure in doing things Answer Date of Assessment Author Nearly every day 01/31/2025 10:23 AM EDT Rupali Sosa MA * Feeling down, depressed, or hopeless Answer Date of Assessment Author Nearly every day 01/31/2025 10:23 AM SUSANNAHT Rupali Sosa MA * Trouble falling or staying asleep, or sleeping too much Answer Date of Assessment Author Nearly every day 01/31/2025 10:23 AM SUSANNAHT Rupali Sosa MA * Feeling tired or having little energy Answer Date of Assessment Author Nearly every day 01/31/2025 10:23 AM EDT Rupali Sosa MA * Poor appetite or overeating Answer Date of Assessment Author Nearly every day 01/31/2025 10:23 AM SUSANNAHT Rupali Sosa MA * Feeling bad about yourself - or that you are a failure or have let yourself or your family down Answer Date of Assessment Author Nearly every day 01/31/2025 10:23 AM SUSANNAHT Rupali Sosa MA * Trouble concentrating on things, such as reading the newspaper or watching television Answer Date of Assessment Author Nearly every day 01/31/2025 10:23 AM Rupali Hernandez MA * Moving or speaking so slowly that other people could have noticed? Or the opposite - being so fidgety or restless that you have been moving around a lot more than usual. Answer Date of Assessment Author Nearly every day 01/31/2025 10:23 AM Rupali Hernandez MA * Thoughts that you would be better off or hurting yourself in some way Answer Date of Assessment Author Not at all 01/31/2025 10:23 AM Rupali Hernandez MA * Patient Health Questionnaire-9 Score Answer Date of Assessment Author 24 01/31/2025 10:23 AM Rupali Hernandez MA * How difficult have these problems made it for you to do your work, take care of things at home, or get along with other people? Answer Date of Assessment Author Very difficult 01/31/2025 10:23 AM Rupali Hernandez MA * Over the last 2 weeks, how often have you been bothered by any of the following problems? Question Answer Date of Assessment Author Feeling nervous, anxious, or on edge 3 01/04 10:23 AM Rupali Hernandez MA Not being able to stop or co ntrol worrying 3 01/31/2025 10:23 AM Rupali Hernandez MA Worrying too much about diff erent things 3 01/31/2025 10:23 AM Rupali Hernandez MA Trouble relaxing 3 01/31/2025 10:23 AM Rupali Hernandez MA Being so restless that it is hard to sit still 3 01/31/2025 10:23 AM Rupali Hernandez MA Becoming easily annoyed or irritable 3 01/04 10:23 AM Rupali Hernandez MA Feeling afraid as if somethi ng awful might happen 3 01/31/2025 10:23 AM Rupali Hernandez MA URIAH-7 Total Score 21 01/31/2025 10:23 AM Rupali Hernandez MA documented as of this encounter Miscellaneous Notes * Telephone Encounter - Katerina Howard RN - 12/13/2024 2:40 PM EDT Triage call with [employer] [place] [id number] Pt daughter , Lidia is speaking for Pt who is right next to her. Pt reports right knee pain for several days. Pt has swelling of the right knee, neg for redness, or warmth to touch. Pt is able to ambulate but, with moderate pain. Pt is advised to try ice or heat to see which one helps the most. Ptwill try tylenol and alternate with advil for pain relief. No swelling of ankle or foot on the right leg. Pt is offered to be seen in [facility] but, declines asking for apt. ASK apt with Dr. Robb 12/15/24 @ 1200p. Unable to verify insurance due to computer error. Pt daughter is advised to seek evaluation in closest ED if symptoms worsen before apt and daughter agrees with this plan and disposition. Protocol Used: Knee Pain (Adult) Protocol-Based Disposition: See in Office or Video Visit within 3 Days Video visit not offered Positive Triage Questions: * Moderate pain (e.g., symptoms interfere with work or school, limping) and present > 3 days * Swollen knee joint (no fever or redness) * All higher-acuity triage questions were negative Care Advice Discussed: * Reassurance and Education - Knee Pain * Pain Medicines * Pain Medicines - Extra Notes and Warnings * Using Heat for Pain * Reasons To Call Back - Moderate pain (interferes with normal activities, limping) lasts over 3 days - Mild pain lasts over 7 days - Signs of infection occur (spreading redness, warmth, fever) - You become worse * Telephone Encounter - Roseann Gonzales - 12/13/2024 2:19 PM EDT Symptom: Leg Pain - Not From Injury Outcome: Schedule an appointment to be seen within 24 hours Reason: Caller denied all higher acuity questions The caller accepted this outcome. documented in this encounter Plan of Treatment Not on file documented as of this encounter Visit Diagnoses Diagnosis Chronic pain of left knee documented in this encounter Care Teams Manager Van Relationship Specialty Start Date End Date Hanna Marcelino MD [address] [place] [phone] PCP - General Family Medicine 07/05/18 documented as of this encounter
--- OUTSIDE RECORDS SUMMARY | 2025-03-08 12:06 | XMS_ITS | Encounter Summary ---
Author Organization [employer] Address [address] [place] [address] Care Team Providers Care Decision Unit Rn Name Role Phone Hanna Marcelino MD Primary Care Provider + Reason for Visit * Reason Comments Med Refill Encounter Details Date Type Department Care Team ([facility] st Contact Info) Description 03/08/2025 Refill [facility] MEDICINE [address] [place], [place] [phone] Hanna Marcelino MD [address] [place], [place] [phone] Essential hypertension; Hypertriglyceridemia; Alcoholism (CMS/HCC) Social History Tobacco Use Types Packs/Day Years [...] as of this encounter Visit Diagnoses Diagnosis Essential hypertension Unspecified essential hypertension Hypertriglyceridemia Pure hyperglyceridemia Alcoholism (CMS/HCC) Other and unspecified alcohol dependence, unspecified drinking behavior documented in this encounter Additional Health Concerns Assessment Noted Time PHQ-9 Depression Total Score: 24 025 10:23 AM EDT documented as of this encounter Care Teams Decision Unit Rn Relationship Specialty Start Date End Date Hanna Marcelino MD [address] [place] [id number] PCP - General Family Medicine 07/05/18 documented as of this encounter
--- OUTSIDE RECORDS SUMMARY | 2025-03-08 12:06 | XMS_ITS | Encounter Summary ---
Author Organization [employer] Address [address] [place] [address] Care Team Providers Care Steel Plate Caulker Name Role Phone Hanna Marcelino MD Primary Care Provider + Reason for Visit * Reason Comments Med Refill Encounter Details Date Type Department Care Team ([facility] st Contact Info) Description 03/07/2025 Refill [facility] MEDICINE [address] [place], [place] [phone] Hanna Marcelino MD [address] [place], [place] [phone] Social History Tobacco Use Types Packs/Day Years [...] documented as of this encounter Care Teams Steel Plate Caulker Relationship Specialty Start Date End Date Hanna Marcelino MD [address] [place] [address] PCP - General Family Medicine 07/05/18 documented as of this encounter
--- OUTSIDE RECORDS SUMMARY | 2025-03-08 12:06 | XMS_ITS | Encounter Summary ---
Author Organization [employer] Address [address] [place] [address] Care Team Providers Care Payment Rep Name Role Phone Hanna Marcelino MD Primary Care Provider + Reason for Visit * Reason Onset Date Comments pt1 02/09/2025 Encounter Details Date Type Department Care Team ([facility] Contact Info) Description 02/09/2025 Telephone [facility] MEDICINE [address] [place], [place] [phone] Hanna Marcelino MD [address] [place], [place] [phone] pt1 Social History Tobacco Use Types Packs/Day [...] Y/N: Yes Provider [facility] or [facility] name: [facility] Escort needed: Y/N: Yes Do you have a wheelchair: Y/N: No Visits: (2x month) documented in this encounter Plan of Treatment Not on file documented as of this encounter Visit Diagnoses Not on filedocumented in this encounter Additional Health Concerns Assessment Noted Time PHQ-9 Depression Total Score: 24 025 10:23 AM EDT documented as of this encounter Care Teams Payment Rep Relationship Specialty Start Date End Date Hanna Marcelino MD [address] [place] [id number] PCP - General Family Medicine 07/05/18 documented as of this encounter
--- OUTSIDE RECORDS SUMMARY | 2025-03-08 12:06 | XMS_ITS | Encounter Summary ---
Author Organization [employer] Address [address] [facility] [address] [place] [address] Care Team Providers Care Obstetrical Tech Name Role Phone Hanna Marcelino MD Primary Care Provider + Reason for Visit * Reason Onset Date Comments Appointment Request 12/18/2024 Encounter Details Date Type Department Care Team ([facility] Contact Info) Description 12/18/2024 Telephone [facility] MEDICINE [address] [place], [place] [phone] Hanna Marcelino MD [address] [place], [place] [phone] Appointment Request Social History Tobacco Use Types [...] encounter Miscellaneous Notes * Telephone Encounter - Wu Booker - 12/18/2024 9:17 AM EDT TC from daughter requesting to reschedule patient???s appointment due to personal obligations. documented in this encounter Plan of Treatment Not on file documented as of this encounter Visit Diagnoses Not on filedocumented in this encounter Care Teams Obstetrical Tech Relationship Specialty Start Date End Date Hanna Marcelino MD [address] [place] [phone] PCP - General Family Medicine 07/05/18 documented as of this encounter
== END 2025-03-08 11:56 | disposition home or self-care (01) ==
LOC: HO.HOS 10:37
PROVIDERS: PCP Internal Medicine; Visit Provider Orthopaedic Surgery
DX: M17.11 Unilateral primary osteoarthritis, right knee (principal)
CPT/HCPCS: 20610; 99203

== ENCOUNTER → 2025-03-08 10:36 | Outpatient (BNVA) | payer MEDICARE, SELFPAY | PROVIDERS: PCP Internal Medicine; Visit Provider Orthopaedic Surgery | DX: M17.11 Unilateral primary osteoarthritis, right knee (principal) | CPT/HCPCS: 20610; 99202; J0665; J1100; J2003 ==